=== PATIENT | female | born 1955 | race Caucasian/White ===

== ENCOUNTER → 2017-03-29 | Outpatient (REF) | payer BC ==
[2017-03-29 15:41] LABS: ANION GAP 6 MEQ/L (8-16); BLOOD UREA NITROGEN 13 MG/DL (7-18); CARBON DIOXIDE LEVEL 31 MEQ/L (21-32); CHLORIDE LEVEL 101 MEQ/L (98-107); CREATININE FOR GFR 0.81 MG/DL (0.55-1.02); GLOMERULAR FILTRATION RATE > 60.0 (>45); GLUCOSE, FASTING 92 MG/DL (80-110); POTASSIUM SERUM 4.3 MEQ/L (3.5-5.1); SODIUM LEVEL 138 MEQ/L (136-145)
[2017-03-29 15:42] LABS: ALBUMIN 3.6 GM/DL (3.2-5.2); ALBUMIN/GLOBULIN RATIO 1.03 (1.00-1.93); ALKALINE PHOSPHATASE 60 U/L (45-117); ALT/SGPT 25 U/L (12-78); AST/SGOT 12 U/L (15-37); BILIRUBIN,TOTAL 0.5 MG/DL (0.2-1.0); CALCIUM LEVEL 8.8 MG/DL (8.8-10.2); CHOLESTEROL LEVEL 184 MG/DL (<200); TOTAL PROTEIN 7.1 GM/DL (6.4-8.2); TRIGLYCERIDES LEVEL 137 MG/DL (<150)
== END ==
LOC: M SFHCLACO 08:49
PROVIDERS: ATTEND Physician Assistant
DX: E78.2 Mixed hyperlipidemia (principal); K21.9 Gastro-esophageal reflux disease without esophagitis

== ENCOUNTER → 2017-10-04 | Outpatient (REF) | payer BC ==
[2017-10-04 15:36] LABS: ALBUMIN 3.7 GM/DL (3.2-5.2); ALBUMIN/GLOBULIN RATIO 1.03 (1.00-1.93); ALKALINE PHOSPHATASE 67 U/L (45-117); ALT/SGPT 21 U/L (12-78); ANION GAP 8 MEQ/L (8-16); AST/SGOT 15 U/L (7-37); BILIRUBIN,TOTAL 0.4 MG/DL (0.2-1.0); BLOOD UREA NITROGEN 14 MG/DL (7-18); CALCIUM LEVEL 9.1 MG/DL (8.8-10.2); CARBON DIOXIDE LEVEL 26 MEQ/L (21-32); CHLORIDE LEVEL 104 MEQ/L (98-107); CHOLESTEROL LEVEL 158 MG/DL (<200); CREATININE FOR GFR 0.62 MG/DL (0.55-1.02); GLOMERULAR FILTRATION RATE > 60.0 (>45); GLUCOSE, FASTING 99 MG/DL (80-110); POTASSIUM SERUM 3.8 MEQ/L (3.5-5.1); SODIUM LEVEL 138 MEQ/L (136-145); TOTAL PROTEIN 7.3 GM/DL (6.4-8.2); TRIGLYCERIDES LEVEL 171 MG/DL (<150)
== END ==
LOC: M SFHCLACO 08:02
PROVIDERS: ATTEND Physician Assistant
DX: E78.2 Mixed hyperlipidemia (principal); K21.9 Gastro-esophageal reflux disease without esophagitis

== ENCOUNTER → 2018-04-04 | Outpatient (REF) | payer BC ==
[2018-04-04 15:02] LABS: HEMATOCRIT 43.7 % (36.0-47.0); HEMOGLOBIN 13.7 g/dl (12.0-15.5); MEAN CORPUSCULAR HEMOGLOBIN 26.1 pg (27.0-33.0); MEAN CORPUSCULAR HGB CONC 31.4 g/dl (32.0-36.5); MEAN CORPUSCULAR VOLUME 83.2 fl (80.0-96.0); PLATELET COUNT, AUTOMATED 185 10^3/uL (150-450); RED BLOOD COUNT 5.25 10^6/uL (4.00-5.40); RED CELL DISTRIBUTION WIDTH 15.9 % (11.5-14.5); WHITE BLOOD COUNT 7.7 10^3/uL (4.0-10.0)
[2018-04-04 15:05] LABS: ALBUMIN 3.4 GM/DL (3.2-5.2); ALBUMIN/GLOBULIN RATIO 0.77 (1.00-1.93); ALKALINE PHOSPHATASE 73 U/L (45-117); ALT/SGPT 21 U/L (12-78); ANION GAP 5 MEQ/L (8-16); AST/SGOT 11 U/L (7-37); BILIRUBIN,TOTAL 0.4 MG/DL (0.2-1.0); BLOOD UREA NITROGEN 13 MG/DL (7-18); CALCIUM LEVEL 9.1 MG/DL (8.8-10.2); CARBON DIOXIDE LEVEL 30 MEQ/L (21-32); CHLORIDE LEVEL 104 MEQ/L (98-107); CHOLESTEROL LEVEL 177 MG/DL (<200); CHOLESTEROL RISK RATIO 3.612 (<5); CREATININE FOR GFR 0.74 MG/DL (0.55-1.30); GLOMERULAR FILTRATION RATE > 60.0 (>45); GLUCOSE, FASTING 90 MG/DL (70-100); HDL CHOLESTEROL 49 MG/DL (>40); LDL CHOLESTEROL 100.6 MG/DL (<100); NON-HDL-C 128 MG/DL; POTASSIUM SERUM 4.7 MEQ/L (3.5-5.1); SODIUM LEVEL 139 MEQ/L (136-145); TOTAL PROTEIN 7.8 GM/DL (6.4-8.2); TRIGLYCERIDES LEVEL 137 MG/DL (<150)
== END ==
LOC: M SFHCLACO 08:11
DX: J45.909 Unspecified asthma, uncomplicated (principal); E78.2 Mixed hyperlipidemia; K21.9 Gastro-esophageal reflux disease without esophagitis; Z79.899 Other long term (current) drug therapy
CPT/HCPCS: 80053

== ENCOUNTER → 2018-04-11 | Outpatient (REF) | payer BC ==
[2018-04-20 00:06] LABS: AMPHETAMINE SCREEN, URINE Negative ng/mL (Cutoff=1000); BARBITURATES SCREEN, URINE Negative ng/mL (Cutoff=200); BENZODIAZEPINES, URINE SCREEN Negative ng/mL (Cutoff=200); CANNABINOID SCREEN, URINE Negative ng/mL (Cutoff=20); COCAINE SCREEN, URINE Negative ng/mL (Cutoff=300); CODEINE, URINE Negative (Cutoff=100); CREATININE, URINE 184.4 mg/dL (20.0-300.0); FENTANYL URINE SCREEN Negative pg/mL (Cutoff=2000); HYDROCODONE CONFIRM, URINE 2440 ng/mL (Cutoff=100); HYDROCODONE, URINE Positive (.); HYDROMORPHONE CONFIRM, URINE 385 ng/mL (Cutoff=100); HYDROMORPHONE, URINE Positive (.); METHADONE, URINE SCREEN Negative ng/mL (Cutoff=300); MORPHINE, URINE Negative (Cutoff=100); OPIATE SCREEN, URINE See Final Results ng/mL (Cutoff=300); OPIATES, URINE Positive ng/mL (Cutoff=300); OXYCODONE, SCREEN, URINE Negative ng/mL (Cutoff=100); PCP SCREEN, URINE Negative ng/mL (Cutoff=25); SPECIFIC GRAVITY, URINE 1.026 (.); pH, URINE 5.4 (4.5-8.9)
== END ==
LOC: M SFHCLACO 11:34
DX: Z79.899 Other long term (current) drug therapy (principal)
CPT/HCPCS: 80307

== ENCOUNTER → 2018-06-29 | Outpatient (REF) | payer BC | LOC: M SFHCPLAZ 17:32 | DX: R23.8 Other skin changes (principal) ==

== ENCOUNTER 2019-03-16 13:13 | Inpatient (IN) | payer BC ==
[~2019-03-16] VITALS: Ht 165.1 cm; Wt 113.5 kg
[2019-03-16 14:17] LABS: VENOUS BASE EXCESS 3.3 (-2.0-2.0); VENOUS HCO3 26.9 MEQ/L (23.0-27.0); VENOUS O2 SATURATION 99.1 % (60.0-80.0); VENOUS PARTIAL PRESSURE CO2 37.2 mmHg (38.0-50.0); VENOUS PARTIAL PRESSURE O2 135.2 mmHg (30.0-50.0); VENOUS PH 7.477 UNITS (7.330-7.430); VENOUS STANDARD HCO3 27.5 MEQ/L
[2019-03-16 14:22] LABS: BASO # 0.1 10^3/uL (0.0-0.2); BASO % 0.4 % (0.0-1.0); EOS % 0.3 % (0.0-3.0); HEMATOCRIT 32.1 % (36.0-47.0); HEMOGLOBIN 10.5 g/dl (12.0-15.5); LYMPH # 1.2 10^3/uL (1.5-4.5); LYMPH % 9.4 % (24.0-44.0); MEAN CORPUSCULAR HEMOGLOBIN 28.5 pg (27.0-33.0); MEAN CORPUSCULAR HGB CONC 32.7 g/dl (32.0-36.5); MEAN CORPUSCULAR VOLUME 87.2 fl (80.0-96.0); MONO # 1.7 10^3/uL (0.0-0.8); MONO % 13.6 % (0.0-5.0); NEUTROPHILS # 9.3 10^3/uL (1.8-7.7); NEUTROPHILS % 75.6 % (36.0-66.0); PLATELET COUNT, AUTOMATED 196 10^3/uL (150-450); RED BLOOD COUNT 3.68 10^6/uL (4.00-5.40); WHITE BLOOD COUNT 12.2 10^3/uL (4.0-10.0)
[2019-03-16] MEDS ORDERED: HYDR-3713 PO (14:45)
[2019-03-16] MEDS ORDERED: LEVOTAB10 PO (14:45)
[2019-03-16] MEDS ORDERED: OMEP-221 PO (14:45)
[2019-03-16] MEDS ORDERED: DULO1CAP3 PO (14:45)
[2019-03-16 14:55] LABS: ALBUMIN 2.6 GM/DL (3.2-5.2); ALT/SGPT 23 U/L (12-78); BILIRUBIN,DIRECT 0.3 MG/DL (0.0-0.2); BLOOD UREA NITROGEN 8 MG/DL (7-18); CALCIUM LEVEL 12.6 MG/DL (8.8-10.2); CARBON DIOXIDE LEVEL 27 MEQ/L (21-32); CHLORIDE LEVEL 98 MEQ/L (98-107); CPK CREATINE PHOSPHOKINASE 19 U/L (26-192); GLOMERULAR FILTRATION RATE > 60.0 (>45); GLUCOSE, FASTING 94 MG/DL (70-100); MB/CK RELATIVE INDEX 5.79 (< OR =4); POTASSIUM SERUM 3.1 MEQ/L (3.5-5.1); SODIUM LEVEL 135 MEQ/L (136-145); THYROID STIMULATING HORMONE 0.732 uIU/ML (0.358-3.740); TOTAL PROTEIN 6.4 GM/DL (6.4-8.2); TROPONIN I < 0.02 NG/ML (< 0.10)
[2019-03-16] MEDS ORDERED: ISOVUE-370 76% 100ML VIAL (Q9967) As Ordered ONE (15:13)
[2019-03-16] MEDS ORDERED: POTASSIUM CHLORIDE 10 MEQ SR TABLET PO ONE (15:15)
[2019-03-16] MEDS ORDERED: NS 1,000 ML IV ONE (15:15)
--- NOTE | 2019-03-16 15:54 | REP ---
Clinical: Abdominal pain. Technique: Axial contrast enhanced images from the lung bases to the pubic symphysis with coronal and sagittal re-formations using 100 ml Isovue 370 intravenous contrast material. Delayed images of the abdomen obtained. Comparison: None. Findings: The spleen demonstrates multiple low-density lesions measuring up to 5 cm and extensive intraperitoneal and retroperitoneal adenopathy is appreciated including conglomerate adenopathy along the retroperitoneum surrounding the aorta measuring roughly 14.2 x 11.4 cm diameter and 18.3 cm in craniocaudal length. Lymph nodes are also identified extending into the pelvis measuring up to approximately 5.7 cm. Similar low density mass involve the lower pole of the left kidney which measures approximately 8.6 x 8.8 x 7.5 cm. Liver, pancreas, gallbladder, bilateral adrenal glands and right kidney are normal. The enteric system is without obstruction or acute inflammatory process. Pelvis demonstrates collapsed bladder and age-appropriate uterus/adnexa. No ascites. No free air. Abdominal aorta without aneurysm or dissection. Musculoskeletal structures demonstrate degenerative change without focal osseous abnormality. Impression: 1. 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 Electronically Signed by Krishan Morris MD 03/16/2019 03:46 P
[2019-03-16] MEDS ORDERED: KCL 10MEQ/100ML SWI (KRUN) 10 MEQ in APPROPRIATE DILUENT 1 EA IV ONE (16:15)
[2019-03-16 16:27] LABS: LDH LACTATE DEHYDROGENASE 1097 U/L (84-246); PTH INTACT < 6.3 PG/ML (18.5-88.0)
[2019-03-16] MEDS ORDERED: ALB2.5NEB INH (16:35)
[2019-03-16] MEDS ORDERED: AMOX875T2 PO (16:35)
[2019-03-16] MEDS ORDERED: PROC10TA4 PO (16:35)
[2019-03-16] MEDS ORDERED: OMEPRAZOLE 20 MG CAP PO ONE (17:15)
[2019-03-16] MEDS ORDERED: ALBUTEROL SULFATE 2.5 MG/0.5 ML INH NEB SOLN INH PRN (17:15)
--- NOTE | 2019-03-16 18:01 | HPE ---
DATE OF ADMISSION: 03/16/2019 PRIMARY CARE PHYSICIAN: Dr. Sarahi Barrera. ATTENDING PHYSICIAN: Dr. Velez. CHIEF COMPLAINT: Eight weeks of nausea, vomiting, diarrhea and abdominal pain. HISTORY OF PRESENT ILLNESS: The patient is a 63-year-old white female without significant past medical history, presents to the emergency room (ER) for evaluation of above complaints. History is provided by herself. She is stating for the last eight weeks she was sick and she feels nauseous. She has abdominal pain, indicating whole abdomen, pain is sharp, is on and off. The worst pain is about 8/10 in severity. No radiation. She stated she had some fever, chills, night sweats. She lost about 10 pounds in the last few weeks. Regarding diarrhea, it is not bloody, but it is watery diarrhea. She was given ampicillin treatment for a possible sinus infection recently. Due to worsening abdominal pain, she decided to come to the ER for the following evaluation. In the ER, her initial blood work, the calcium was high at 16 and potassium was down to 3.1. She had a CT of the abdomen and pelvis done in the ER, which indicated she has extensive lymphadenopathy and is consistent with lymphoma and she was given intravenous (IV) fluid in the ER and medicine service was called for the admission. REVIEW OF SYSTEMS: Intermittent fevers, chills, night sweats. No headache. No blurry vision. No shortness of breath. No chest pain. Positive nausea. Positive vomiting, but no hematemesis. No bloody diarrhea. Positive abdominal pain. General weakness. All other systems reviewed were negative. PAST MEDICAL HISTORY: 1. Depression. 2. Acid reflux. 3. Degenerative joint disease. PAST SURGICAL HISTORY: 1. (C) section. 2. Cyst removal from spine. 3. Right shoulder surgery. ALLERGIES: SULFA. SOCIAL HISTORY: One pack tobacco use for 30 years and quit 30 years ago. No alcohol abuse. No illicit drug use. She lives with at home. CODE STATUS: She is FULL CODE. FAMILY HISTORY: Both parents are . Father had history of myocardial infarction ([place]). MEDICATIONS: Reviewed. PHYSICAL EXAMINATION: VITAL SIGNS: Temperature 99.6, heart rate 99, respirations 18, blood pressure 105/59, oxygen saturation 94% on room air. GENERAL: She is awake, alert, oriented times three. She is <<4:31>> . HEENT: Atraumatic. Pupils equal, round, reactive to light. No jaundice. Extraocular muscles intact. Ears, nose, throat normal. Mouth: Mucus dry. NECK: No jugular venous distention (JVD). She has enlarged lymph nodes 2-3 cm in her left neck area. LUNGS: Clear. No wheezing or crackles. HEART: S1, S2. Regular. No murmur. ABDOMEN: Soft. Bowel sounds positive. Mild, diffuse tenderness, but no rebound. LOWER EXTREMITIES: No edema in bilateral lower extremities. SKIN: No rash. LYMPHATICS: There are no enlarged lymph nodes in her armpits, groin area except one in the upper left neck area. NEUROLOGIC: Nonfocal. PSYCHOLOGIC: No acute psychosis, but very anxious. DIAGNOSTIC LABORATORY STUDIES: Including folate, complete blood count (CBC) and differential showed WBC 12.2, hemoglobin and hematocrit (H and H) 10.5/32, platelets 196. Sodium 135, potassium 3.1, BUN 8, creatinine 3.8, glucose 94, calcium is up to 12.6, and amylase is 6.5. CT of the abdomen and pelvis showed extensive lymphadenopathy. IMPRESSION: 1. Hypercalcemia. 2. Hypokalemia. 3. Lymphadenopathy, possible lymphoma. PLAN: Patient will be admitted to the medicine floor. Will treat with IV fluid and monitor her the next two nights. Will schedule a lymph node biopsy to determine the diagnosis. Heparin subcutaneous injection will be used for deep venous thrombosis (DVT) prophylaxis. MTDD
[2019-03-16 20:00] VITALS: BP 133/70
[2019-03-16] MEDS: HEPARIN SOD (PORCINE) 5000 UNITS/ML VIAL SC SCH (20:35)
[2019-03-16] MEDS: DULoxetine 30 MG CAP (CYMBALTA) PO SCH (20:49)
--- NOTE | 2019-03-16 20:58 | ECGEPIP ---
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
[2019-03-16] MEDS ORDERED: DULoxetine 30 MG CAP (CYMBALTA) PO SCH (21:00)
[2019-03-17 06:00] VITALS: BP 157/80
[2019-03-17 06:30] LABS: HEMATOCRIT 30.9 % (36.0-47.0); HEMOGLOBIN 10.1 g/dl (12.0-15.5); MEAN CORPUSCULAR HEMOGLOBIN 28.8 pg (27.0-33.0); MEAN CORPUSCULAR HGB CONC 32.7 g/dl (32.0-36.5); PLATELET COUNT, AUTOMATED 178 10^3/uL (150-450); RED BLOOD COUNT 3.51 10^6/uL (4.00-5.40)
[2019-03-17 06:31] LABS: IONIZED CALCIUM 6.6 MG/DL (4.5-5.3)
[2019-03-17 06:55] LABS: BLOOD UREA NITROGEN 8 MG/DL (7-18); CALCIUM LEVEL 13.3 MG/DL (8.8-10.2); CARBON DIOXIDE LEVEL 26 MEQ/L (21-32); CHLORIDE LEVEL 99 MEQ/L (98-107); CREATININE FOR GFR 0.86 MG/DL (0.55-1.30); GLOMERULAR FILTRATION RATE > 60.0 (>45); GLUCOSE, FASTING 101 MG/DL (70-100); POTASSIUM SERUM 3.3 MEQ/L (3.5-5.1); SODIUM LEVEL 134 MEQ/L (136-145)
[2019-03-17] MEDS: HEPARIN SOD (PORCINE) 5000 UNITS/ML VIAL SC SCH ×2 (10:01→20:49)
--- NOTE | 2019-03-17 10:37 | IPNPDOC ---
Date Seen The patient was seen on 03/17/19. Progress Note SUBJECTIVE: 65 Y female, without significant PMH presents with abdominal and n/v/d for about 8 weeks workups in ER showed hypercalcemia and extensive lymphadenopathy no events overnight Review of systems no fever no chills no WHYTE no chest pain mild abdominal pain no diarrhea OBJECTIVE PHYSICAL EXAMINATION: VITAL SIGNS: Please see below. GENERAL: AA Ox3, not in acute distress HEENT: atraumatic; +enlarged LN in left neck (2x3 cm) CARDIOVASCULAR: S1 S2 regular RESPIRATORY: clear, no wheezing no rales ABDOMINAL: soft distended, +mild tenderness, no rebound EXTREMITIES: no edema NEUROLOGICAL: non focal PSYCHOLOGICAL: normal mood LABORATORY DATA, IMAGING STUDIES, MICROBIOLOGY: Please see below. ASSESSMENT AND PLAN: 1. Hypercalcemia, likely related to malignancy will continue IVF, IV lasix and 1 dose Pamidronate 2. Hypokalemia, supplement 3. Lymphadenopathy, ?lymphoma will consult surgery for neck LN biopsy 4. Heparin for DVT prophylaxis [facility] Vital Signs Date Time Temp Pulse Resp B/P (MAP) Pulse Ox O2 Delivery O2 Flow Rate FiO2 03/17/19 06:00 98.7 102 18 157/80 (105) 99 03/16/19 19:30 Room Air I&O- Last 24 Hours up to 6 AM 03/17/19 06:00 Intake Total 1000 ml Output Total 250 ml Balance 750 ml Laboratory Data 24H LABS Laboratory Tests 2 03/16/19 14:05: Immature Granulocyte % (Auto) 0.7, White Blood Count 12.2H, Red Blood Count 3.68L, Hemoglobin 10.5L, Hematocrit 32.1L, Mean Corpuscular Volume 87.2, Mean Corpuscular Hemoglobin 28.5, Mean Corpuscular Hemoglobin Concent 32.7, Red Cell Distribution Width 18.8H, Platelet Count 196, Neutrophils (%) (Auto) 75.6H, Lymphocytes (%) (Auto) 9.4L, Monocytes (%) (Auto) 13.6H, Eosinophils (%) (Auto) 0.3, Basophils (%) (Auto) 0.4, Neutrophils # (Auto) 9.3H, Lymphocytes # (Auto) 1.2L, Monocytes # (Auto) 1.7H, Eosinophils # (Auto) 0.0, Basophils # (Auto) 0.1, Nucleated Red Blood Cells % (auto) 0.0, Blood Gas Bicarbonate Standard 27.5, Venous Blood pH 7.477H, Venous Blood Partial Pressure CO2 37.2L, Venous Blood Pa rtial Pressure O2 135.2H, Venous Blood Total Carbon Dioxide 28.0, Venous Blood HCO3 26.9, Venous Blood Oxygen Saturation 99.1H, Venous Blood Base Excess 3.3H, Anion Gap 10, Glomerular Filtration Rate > 60.0, Lactic Acid Level 3.3*H, Calcium Level 12.6H, Aspartate Amino Transf (AST/SGOT) 61H, Alanine Aminotransferase (ALT/SGPT) 23, Lactate Dehydrogenase 1097H, Alkaline Phosphatase 65, Total Bilirubin 1.0, Direct Bilirubin 0.3H, Total Creatine Kinase 19L, Creatine Kinase MB 1.0, Creatine Kinase MB Relative Index 5.79H, Troponin I < 0.02, Total Protein 6.4, Albumin 2.6L, Albumin/Globulin Ratio 0. 68L, 25-Hydroxy Vitamin D Total 9.0L, Thyroid Stimulating Hormone (TSH) 0.732, Parathyroid Hormone (Intact) < 6.3L 03/16/19 14:13: Bedside Glucose (Misc Panel) 101 03/16/19 15:13: Urine Color YELLOW, Urine Appearance HAZY, Urine pH 6.0, Urine Specific [place] 1.012, Urine Protein NEGATIVE, Urine Glucose (UA) NEGATIVE, Urine Ketones TRACEH, Urine Blood NEGATIVE, Urine Nitrite NEGATIVE, Urine Bilirubin NEGATIVE, Urine Urobilinogen 0.2, Urine Leukocyte Esterase NEGATIVE, Urine WBC (Auto) 5H, Urine RBC (Auto) 2, Urine Hyaline Casts (Auto) 0, Urine Bacteria (Auto) NEGATIVE, Urine Squamous Epithelial Cells 0, Urine Mucus (Auto) SMALL, Urine Sperm (Auto) 03/16/19 16:29: Whole Blood Ionized Calcium 6.5*H 03/16/19 18:48: Lactic Acid Followup at 4 Hours 3.1*H 03/17/19 06:07: Nucleated Red Blood Cells % (auto) 0.0, Anion Gap 9, Glomerular Filtration Rate > 60.0, Blood Urea Nitrogen 8, Creatinine 0.86, Sodium Level 134L, Potassium Level 3.3L, Chloride Level 99, Carbon Dioxide Level 26, Calcium Level 13.3H, Whole Blood Ionized Calcium 6.6*H CBC/BMP Laboratory Tests 03/16/19 14:05 Red Blood Count 3.68 L, Mean Corpuscular Volume 87.2, Mean Corpuscular Hemoglobin 28.5, Mean Corpuscular Hemoglobin Concent 32.7, Red Cell Distribution Width 18.8 H, Neutrophils (%) (Auto) 75.6 H, Lymphocytes (%) (Auto) 9.4 L, Monocytes (%) (Auto) 13.6 H, Eosinophils (%) (Auto) 0.3, Basophils (%) (Auto) 0.4, Neutrophils # (Auto) 9.3 H, Lymphocytes # (Auto) 1.2 L, Monocytes # (Auto) 1.7 H, Eosinophils # (Auto) 0.0, Basophils # (Auto) 0.1 03/17/19 06:07 Red Blood Count 3.51 L, Mean Corpuscular Volume 88.0, Mean Corpuscular Hemoglobin 28.8, Mean Corpuscular Hemoglobin Concent 32.7, Red Cell Distribution Width 19.1 H, Calcium Level 13.3 H Microbiology Microbiology 03/16/19 Blood Culture, Received Pending 03/16/19 Blood Culture, Received Pending 03/16/19 Respiratory Virus Panel (PCR) ([facility]) - Final, Complete Human Rhinovirus/Enterovirus ALEXIS NICHOLE MD March 17, 2019 10:37
[2019-03-17] MEDS: PROCHLORPERAZINE 5 MG TAB (S0183) PO PRN (10:48)
[2019-03-17] MEDS ORDERED: POTASSIUM CHLORIDE 10 MEQ SR TABLET PO ONE (11:00)
[2019-03-17] MEDS ORDERED: FUROSEMIDE 40 MG/4 ML VIAL (J1940) IV ONE (11:00)
[2019-03-17] MEDS: OMEPRAZOLE 20 MG CAP PO SCH (11:24)
[2019-03-17] MEDS: NS 1,000 ML IV SCH ×2 (12:13→17:44)
[2019-03-17] MEDS ORDERED: PAMIDRONATE DISODIUM FOR INJ 60 MG in D5W 1,000 ML IV ONE (13:00)
[2019-03-17 14:00] VITALS: BP 138/72
--- NOTE | 2019-03-17 14:54 | CR ---
DATE OF CONSULTATION: 03/17/2019 BRIEF HISTORY OF PRESENT ILLNESS: The patient is a 63-year-old male who was admitted with 8 weeks of nausea, vomiting, diarrhea and abdominal pain and essentially had extensive workup and during that workup they noticed that she had extensive lymphadenopathy throughout her abdomen and their concern was that she has some lymphoma. She also has palpable supraclavicular lymph nodes on her head and neck exam and I was asked to see her for possible biopsy of these lymph nodes. Her past medical history is significant for history of depression, history of acid reflux, history of degenerative joint disease (DJD), history of , history of cyst removal on the spine, history of right shoulder surgery, history of smoking in the past but no longer smoking for the last 30 years. Physical exam reveals a 63-year-old female who looks stated age. HEENT: Reveals an atraumatic, normocephalic head. Unfortunately she has palpable lymph nodes along her left cervical chain and in the left supraclavicular area. The right side I am not appreciating any significant lymph nodes though I can still feel some but it is not as impressive as the left side. Lungs are clear. Heart is regular. Abdomen is soft, softly distended, tympanitic. She does not really have any guarding, rebound, no peritoneal signs, but definitely distended to some extent. She has a morbidly obese abdomen and thus groin exam not able to appreciate the lymphadenopathy that she most likely has in this area. IMPRESSION AND PLAN: The patient has some enlarged lymph nodes in the cervical area as well as in the supraclavicular area. In the supraclavicular area that is quite spongy with almost lipomatous association to it as well, but I will obtain a CT neck and chest to optimize the location for removal of this lymph node. In general, typically the pathologist in the past have desired a fresh specimen when it came to the lymph nodes and thus we will schedule this for after the long weekend on Tuesday. Until that time it sounds as though she needs to resolve some issues, elevated white count, diarrhea issues, dehydration and some rhinovirus type symptoms.
[2019-03-17] MEDS: DULoxetine 30 MG CAP (CYMBALTA) PO SCH (20:48)
[2019-03-17 22:00] VITALS: BP 151/82
[2019-03-18] MEDS: NS 1,000 ML IV SCH ×4 (00:43→20:25)
[2019-03-18 06:00] VITALS: BP 152/82
[2019-03-18 06:36] LABS: IONIZED CALCIUM 6.4 MG/DL (4.5-5.3)
[2019-03-18 07:05] LABS: BLOOD UREA NITROGEN 7 MG/DL (7-18); CALCIUM LEVEL 12.4 MG/DL (8.8-10.2); CARBON DIOXIDE LEVEL 25 MEQ/L (21-32); CHLORIDE LEVEL 101 MEQ/L (98-107); CREATININE FOR GFR 0.88 MG/DL (0.55-1.30); GLOMERULAR FILTRATION RATE > 60.0 (>45); GLUCOSE, FASTING 106 MG/DL (70-100); POTASSIUM SERUM 3.3 MEQ/L (3.5-5.1); SODIUM LEVEL 135 MEQ/L (136-145)
[2019-03-18] MEDS: OMEPRAZOLE 20 MG CAP PO SCH (08:05)
[2019-03-18] MEDS: HEPARIN SOD (PORCINE) 5000 UNITS/ML VIAL SC SCH ×2 (08:06→20:25)
[2019-03-18] MEDS ORDERED: ISOVUE-370 76% 100ML VIAL (Q9967) As Ordered ONE (08:23)
[2019-03-18] MEDS ORDERED: FUROSEMIDE 40 MG/4 ML VIAL (J1940) IV ONE (09:00)
[2019-03-18] MEDS ORDERED: OMEPRAZOLE 20 MG CAP PO SCH (09:00)
--- NOTE | 2019-03-18 10:05 | REP ---
Clinical: Lymphoma. Technique: Axial contrast enhanced images from the thoracic inlet to the upper abdomen with coronal and sagittal re-formations using 100 ml Isovue 370 intravenous contrast material. Findings: A left submandibular space node measuring 2.5 cm. A left axillary adenopathy with lymph nodes measuring up to 3.3 cm. Mediastinum demonstrates prominent pulmonary arteries suggesting the possibility of pulmonary arterial hypertension. No cardiomegaly. Thoracic aorta is without aneurysm or dissection. No obvious mediastinal adenopathy identified. Lung bishop demonstrate chronic-appearing interstitial changes without focal consolidation, effusion, or pneumothorax. No pulmonary parenchymal nodule or mass lesion. Upper abdomen again demonstrates extensive retroperitoneal adenopathy surrounding the aorta as well as scattered mesenteric adenopathy and splenic lesions. Impression: 1. Adenopathy as described above most compatible with lymphoma. 2. Distended pulmonary arteries suggesting pulmonary arterial hypertension. 3. No acute pleuroparenchymal process appreciated. Electronically Signed by Krishan Morris MD 03/18/2019 09:56 A
--- NOTE | 2019-03-18 11:05 | IPN ---
DATE: 03/18/2019 The patient underwent her CT scan of her neck and chest this morning, results are still pending but obviously had some significant lymphadenopathy. Where I am noticing the most superficial lymph node is in the submandibular / left upper neck area and this is easily palpable on her physical exam. She understands that we will proceed with a open biopsy of this on Tuesday. The risks as well as benefits have been discussed with her at length including but not limited to infection, bleeding, damage to surrounding structures and possible inadequate lymph node tissue. However, at this point I do feel that she needs to be optimized from a medical standpoint prior to operative intervention and thus we have couple days to perform that. White count still elevated at this point which may be secondary to the tumor burden and her abdominal pain is better than it was previously. They have restarted her diet. We will see how she does over the ensuing 24-48 hours.
--- NOTE | 2019-03-18 11:29 | IPNPDOC ---
Date Seen The patient was seen on 03/18/19. Progress Note SUBJECTIVE: 65 Y female, without significant PMH presents with abdominal and n/v/d for about 8 weeks workups in ER showed hypercalcemia and extensive lymphadenopathy she is feeling better, no vomiting or diarrhea still has some abdominal pain but better Review of systems no fever no chills no WHYTE no chest pain mild abdominal pain no diarrhea OBJECTIVE PHYSICAL EXAMINATION: VITAL SIGNS: Please see below. GENERAL: AA Ox3, not in acute distress HEENT: atraumatic; +enlarged LN in left neck (2x3 cm) CARDIOVASCULAR: S1 S2 regular RESPIRATORY: clear, no wheezing no rales ABDOMINAL: soft distended, +mild tenderness, no rebound EXTREMITIES: no edema NEUROLOGICAL: non focal PSYCHOLOGICAL: normal mood LABORATORY DATA, IMAGING STUDIES, MICROBIOLOGY: Please see below. ASSESSMENT AND PLAN: 1. Hypercalcemia, likely related to malignancy improving after IVF, lasix and Pamidronate will continue IVF 2. Hypokalemia, supplement 3. Lymphadenopathy, ?lymphoma Neck and chest CT showed enlarged LN in left neck and left armpit Surgery consulted and plans for neck LN biopsy on 03/20 4. Heparin for DVT prophylaxis VS, I&O, 24H, Fishbone Vital Signs/I&O Vital Signs Date Time Temp Pulse Resp B/P (MAP) Pulse Ox O2 Delivery O2 Flow Rate FiO2 03/18/19 06:00 98.7 104 19 152/82 (105) 95 03/16/19 19:30 Room Air I&O- Last 24 Hours up to 6 AM 03/18/19 06:00 Intake Total 2950 ml Output Total 0 ml Balance 2950 ml Laboratory Data 24H LABS Laboratory Tests 2 03/18/19 06:10: Anion Gap 9, Glomerular Filtration Rate > 60.0, Blood Urea Nitrogen 7, Creatinine 0.88, Sodium Level 135L, Potassium Level 3.3L, Chloride Level 101, Carbon Dioxide Level 25, Calcium Level 12.4H, Whole Blood Ionized Calcium 6.4*H CBC/BMP Laboratory Tests 03/18/19 06:10 Calcium Level 12.4 H Microbiology Microbiology 03/16/19 Blood Culture - Preliminary, Resulted No growth after 24 hours . All specim... 03/16/19 Blood Culture - Preliminary, Resulted No growth after 24 hours . All specim... 03/16/19 Respiratory Virus Panel (PCR) ([facility]) - Final, Complete Human Rhinovirus/Enterovirus ENGLISH,XIANJIN MD March 18, 2019 11:29
--- NOTE | 2019-03-18 13:35 | REP ---
Clinical: Lymphoma. Technique: Axial contrast enhanced images from the skull base to the thoracic inlet with coronal and sagittal re-formations using 100 ml Isovue 370 intravenous contrast material. Findings: Innumerable left-sided lymph nodes are appreciated. As example, left submandibular lymph nodes measure up to 2.6 x 2.4 x 1.5 cm, para-parotid lymph nodes measure up to 2.6 x 2.4 x 2.0 cm, multiple jugular chain lymph nodes measure up to 2.8 x 2.5 x 3.3 cm, and conglomerate lymph nodes at the thoracic inlet measure 5.5 x 3.1 x 3.5 cm. Right-sided lymph nodes are relatively normal in appearance. Visualized airway and surrounding soft tissues are otherwise normal. Visualized sinuses and mastoid air cells are clear. Orbits are symmetric and normal. Vascular structures are symmetric and normal. Osseous structures are intact. Impression: Extensive left-sided adenopathy consistent with the suspected diagnosis of lymphoma. Electronically Signed by Krishan Morris MD 03/18/2019 01:28 P
[2019-03-18 14:00] VITALS: BP 147/73
[2019-03-18] MEDS: DULoxetine 30 MG CAP (CYMBALTA) PO SCH (20:25)
[2019-03-18 22:00] VITALS: BP 129/62
[2019-03-19 06:00] VITALS: BP 135/63
[2019-03-19 06:20] LABS: IONIZED CALCIUM 5.7 MG/DL (4.5-5.3)
[2019-03-19 06:43] LABS: BLOOD UREA NITROGEN 9 MG/DL (7-18); CALCIUM LEVEL 10.7 MG/DL (8.8-10.2); CARBON DIOXIDE LEVEL 24 MEQ/L (21-32); CHLORIDE LEVEL 101 MEQ/L (98-107); CREATININE FOR GFR 0.85 MG/DL (0.55-1.30); GLOMERULAR FILTRATION RATE > 60.0 (>45); GLUCOSE, FASTING 103 MG/DL (70-100); MAGNESIUM LEVEL 1.1 MG/DL (1.8-2.4); POTASSIUM SERUM 3.2 MEQ/L (3.5-5.1); SODIUM LEVEL 136 MEQ/L (136-145); URIC ACID 8.7 MG/DL (2.6-6.0)
[2019-03-19] MEDS: HEPARIN SOD (PORCINE) 5000 UNITS/ML VIAL SC SCH ×2 (08:16→20:28)
[2019-03-19] MEDS: NORCO, ANEXSIA 5/325MG TABLET (HYDROcodone/ACETAMINOPHEN) PO PRN ×2 (08:16→16:44)
[2019-03-19] MEDS: OMEPRAZOLE 20 MG CAP PO SCH (08:17)
[2019-03-19] MEDS: POTASSIUM CHLORIDE 10 MEQ SR TABLET PO SCH ×2 (08:17→20:27)
--- NOTE | 2019-03-19 09:42 | IPNPDOC ---
Date Seen The patient was seen on 03/19/19. Progress Note SUBJECTIVE: 65 Y female, without significant PMH presents with abdominal and n/v/d for about 8 weeks workups in ER showed hypercalcemia and extensive lymphadenopathy she is feeling better, no vomiting or diarrhea doing well no events overnight Review of systems no fever no chills no WHYTE no chest pain no abdominal pain no diarrhea OBJECTIVE PHYSICAL EXAMINATION: VITAL SIGNS: Please see below. GENERAL: AA Ox3, not in acute distress HEENT: atraumatic; +enlarged LN in left neck (2x3 cm) CARDIOVASCULAR: S1 S2 regular RESPIRATORY: clear, no wheezing no rales ABDOMINAL: soft distended, +mild tenderness, no rebound EXTREMITIES: no edema NEUROLOGICAL: non focal PSYCHOLOGICAL: normal mood LABORATORY DATA, IMAGING STUDIES, MICROBIOLOGY: Please see below. ASSESSMENT AND PLAN: 1. Hypercalcemia, likely related to malignancy resolved after IVF, lasix and Pamidronate will d/c IVF 2. Hypokalemia, resolved 3. Lymphadenopathy, ?lymphoma Neck and chest CT showed enlarged LN in left neck and left armpit Surgery consulted and plans for neck LN biopsy on 03/20 4. Heparin is for DVT Prophylaxis 5. She may go home tomorrow after LN biopsy VS, I&O, 24H, Fishbone Vital Signs/I&O Vital Signs Date Time Temp Pulse Resp B/P (MAP) Pulse Ox O2 Delivery O2 Flow Rate FiO2 03/19/19 08:46 18 03/19/19 06:00 98.0 97 135/63 (87) 96 03/16/19 19:30 Room Air I&O- Last 24 Hours up to 6 AM 03/19/19 05:59 Intake Total 2220 ml Output Total 1075 ml Balance 1145 ml Laboratory Data 24H LABS Laboratory Tests 2 03/19/19 06:01: Anion Gap 11, Glomerular Filtration Rate > 60.0, Uric Acid 8.7H, Blood Urea Nitrogen 9, Creatinine 0.85, Sodium Level 136, Potassium Level 3.2L, Chloride Level 101, Carbon Dioxide Level 24, Calcium Level 10.7H, Whole Blood Ionized Calcium 5.7H, Magnesium Level 1.1L CBC/BMP Laboratory Tests 03/19/19 06:01 Calcium Level 10.7 H Microbiology Microbiology 03/16/19 Blood Culture - Preliminary, Resulted No Growth after 48 hours. All Specime... 03/16/19 Blood Culture - Preliminary, Resulted No Growth after 48 hours. All Specime... 03/16/19 Respiratory Virus Panel (PCR) ([facility]) - Final, Complete Human Rhinovirus/Enterovirus ALEXIS NICHOLE MD March 19, 2019 09:42
[2019-03-19 10:22] LABS: HEMATOCRIT 30.4 % (36.0-47.0); HEMOGLOBIN 9.8 g/dl (12.0-15.5); MEAN CORPUSCULAR HEMOGLOBIN 28.5 pg (27.0-33.0); MEAN CORPUSCULAR HGB CONC 32.2 g/dl (32.0-36.5); MEAN CORPUSCULAR VOLUME 88.4 fl (80.0-96.0); PLATELET COUNT, AUTOMATED 191 10^3/uL (150-450); RED BLOOD COUNT 3.44 10^6/uL (4.00-5.40)
[2019-03-19 10:31] LABS: BLOOD UREA NITROGEN 10 MG/DL (7-18); CARBON DIOXIDE LEVEL 24 MEQ/L (21-32); CHLORIDE LEVEL 101 MEQ/L (98-107); CREATININE FOR GFR 0.94 MG/DL (0.55-1.30); GLOMERULAR FILTRATION RATE > 60.0 (>45); GLUCOSE, FASTING 117 MG/DL (70-100); POTASSIUM SERUM 3.2 MEQ/L (3.5-5.1); SODIUM LEVEL 135 MEQ/L (136-145)
[2019-03-19 14:00] VITALS: BP 138/65
[2019-03-19] MEDS: DULoxetine 30 MG CAP (CYMBALTA) PO SCH (20:28)
[2019-03-19 22:00] VITALS: BP 137/69
[2019-03-20] VITALS (9 sets, daily range): BP systolic 125–156; BP diastolic 58–76
[2019-03-20 06:17] LABS: IONIZED CALCIUM 5.3 MG/DL (4.5-5.3)
[2019-03-20 06:46] LABS: BLOOD UREA NITROGEN 10 MG/DL (7-18); CALCIUM LEVEL 10.5 MG/DL (8.8-10.2); CARBON DIOXIDE LEVEL 24 MEQ/L (21-32); CHLORIDE LEVEL 104 MEQ/L (98-107); CREATININE FOR GFR 0.84 MG/DL (0.55-1.30); GLOMERULAR FILTRATION RATE > 60.0 (>45); GLUCOSE, FASTING 92 MG/DL (70-100); POTASSIUM SERUM 3.8 MEQ/L (3.5-5.1); SODIUM LEVEL 138 MEQ/L (136-145)
[2019-03-20] MEDS: HEPARIN SOD (PORCINE) 5000 UNITS/ML VIAL SC SCH ×2 (09:12→20:54)
[2019-03-20] MEDS: OMEPRAZOLE 20 MG CAP PO SCH (09:12)
[2019-03-20] MEDS ORDERED: PROPOFOL 200 MG/20 ML VIAL As Ordered ONE (10:42)
[2019-03-20] MEDS ORDERED: ONDANSETRON 4MG/2ML VIAL (J2405) As Ordered ONE (10:42)
[2019-03-20] MEDS ORDERED: LIDOCAINE 2% INJ 100 MG/5 ML SDV (FOR ANES.) As Ordered ONE (10:42)
[2019-03-20] MEDS ORDERED: dexameTHASONE 4 MG/ML 1ML VIAL (J1100) As Ordered ONE (10:42)
[2019-03-20] MEDS ORDERED: MIDAZOLAM INJ 2 MG/2 ML VIAL (J2250) As Ordered ONE ×2 (10:43→13:02)
[2019-03-20] MEDS ORDERED: fentaNYL 100 MCG/2 ML INJECTION (J3010) As Ordered ONE (10:43)
[2019-03-20] MEDS ORDERED: ISOSULFAN BLUE(LYMPHAZURIN) 1% 50MG/5ML VIAL (Q9968) As Ordered ONE (12:23)
[2019-03-20] MEDS ORDERED: BUPIVACAINE/EPIN 0.25% 30 ML VIAL As Ordered ONE (12:23)
[2019-03-20] MEDS ORDERED: ALBUTEROL 6.7GM INHALER **FOR ANES. CART/OMNICELL ONLY As Ordered ONE (13:55)
[2019-03-20] MEDS ORDERED: LIDOCAINE 2% JELLY 6 ML SYRINGE As Ordered ONE (13:56)
[2019-03-20] MEDS ORDERED: LR 1,000 ML IV SCH (14:30)
[2019-03-20] MEDS ORDERED: HYDROMORPHONE HCL 0.5 MG/ 0.5 ML SYRINGE (J1170 PER 1) IV PRN (14:30)
[2019-03-20] MEDS ORDERED: PERCOCET 5MG/325MG TAB PO PRN (14:30)
[2019-03-20] MEDS ORDERED: fentaNYL 100 MCG/2 ML INJECTION (J3010) IV PRN (14:30)
[2019-03-20] MEDS ORDERED: ONDANSETRON 4MG/2ML VIAL (J2405) IV PRN (14:30)
--- NOTE | 2019-03-20 16:25 | IPNPDOC ---
Text Note Date of Service The patient was seen on 03/20/19. NOTE Subjective: Patient seen and examined at bedside. No acute overnight events reported. No new medical complaints. Objective: PHYSICAL EXAMINATION: VITAL SIGNS: Please see below. GENERAL: AA Ox3, not in acute distress HEENT: atraumatic; +enlarged LN in left neck (2x3 cm) CARDIOVASCULAR: +S1S2, RRR RESPIRATORY: clear, no wheezing no rales ABDOMINAL: soft, +BS, NT EXTREMITIES: no edema NEUROLOGICAL: non focal PSYCHOLOGICAL: normal mood LABORATORY DATA, IMAGING STUDIES, MICROBIOLOGY: Please see below. A/P: 63 yo female for hypercalcemia likely related to malignancy 1. Hypercalcemia, likely related to malignancy resolved after IVF, lasix and Pamidronate 2. Hypokalemia, resolved 3. Lymphadenopathy, ?lymphoma Neck and chest CT showed enlarged LN in left neck and left armpit Surgery consulted s/p LN biopsy today - observe overnight 4. Heparin is for DVT Prophylaxis Dispo: overnight observation after biopsy, anticipate discharge home tomorrow morning VS,Fishbone, I+O VS, Fishbone, I+O Laboratory Tests 03/20/19 06:08 Calcium Level 10.5 H Vital Signs Date Time Temp Pulse Resp B/P (MAP) Pulse Ox O2 Delivery O2 Flow Rate FiO2 03/20/19 14:28 99.4 103 18 131/63 (85) 93 03/16/19 19:30 Room Air I&O- Last 24 Hours up to 6 AM 03/20/19 06:00 Intake Total 1675 ml Output Total 2700 ml Balance -1025 ml CHUCK HAYS MD March 20, 2019 16:25
[2019-03-20] MEDS: NORCO, ANEXSIA 5/325MG TABLET (HYDROcodone/ACETAMINOPHEN) PO PRN (18:37)
--- NOTE | 2019-03-20 20:22 | RO ---
DATE: 03/20/2019 PREOPERATIVE DIAGNOSIS: Enlarged lymph nodes. (Probable lymphoma). POSTOPERATIVE DIAGNOSIS: Enlarged lymph nodes. (Probable lymphoma). OPERATIVE PROCEDURE: Left neck lymph node biopsy. SURGEON: Srini Hopson MD [employer]RIER DRIVER: ANESTHESIA: IV sedation plus local. ESTIMATED BLOOD LOSS: 25 mL FLUIDS: Crystalloid. BRIEF PROCEDURE SUMMARY: The patient was brought to the operating room and was given IV sedation, was placed in the reverse Trendelenburg position and her head was tilted to the right. She was prepped and draped in the usual sterile fashion and local lidocaine was infiltrated into the area overlying the palpable lymph node and the left upper neck. Incision along the sternocleidomastoid muscle was made with skin knife and electrocautery was used cut through dermis, underlying deep subcutaneous tissue down to Benedict fascia to platysma. This was opened up sharply and a combination of blunt and sharp dissection was used to palpate as well as mobilize around the lymph node. However when mobilizing the lymph node, the lymph node was incredibly necrotic and literally disintegrated with dissection in this area. The portions of the lymph node were removed and there was some mild oozing from this which was controlled with Glo. Then a secondary right on the top where there was a small vein crossing over the lymph node was suture ligating with a #3-0 Vicryl. Once this was performed, the overlying platysma was brought back together with interrupted #3-0 Vicryl. #3-0 Vicryl was used to approximate dermis, #4-0 Vicryl was used to approximate the skin. Steri-Strips and a dry sterile dressing was applied. The patient was awakened from her sedation, brought to the recovery room awake, alert and hemodynamically stable. Sponge and needle counts correct times two.
[2019-03-20] MEDS: DULoxetine 30 MG CAP (CYMBALTA) PO SCH (20:54)
[2019-03-21 04:00] VITALS: BP 113/67
[2019-03-21 08:06] LABS: HEMATOCRIT 31.6 % (36.0-47.0); HEMOGLOBIN 10.2 g/dl (12.0-15.5); MEAN CORPUSCULAR HEMOGLOBIN 28.8 pg (27.0-33.0); MEAN CORPUSCULAR HGB CONC 32.3 g/dl (32.0-36.5); MEAN CORPUSCULAR VOLUME 89.3 fl (80.0-96.0); PLATELET COUNT, AUTOMATED 224 10^3/uL (150-450); RED BLOOD COUNT 3.54 10^6/uL (4.00-5.40); WHITE BLOOD COUNT 17.2 10^3/uL (4.0-10.0)
[2019-03-21 08:33] LABS: ALBUMIN 2.8 GM/DL (3.2-5.2); ALT/SGPT 48 U/L (12-78); BILIRUBIN,TOTAL 0.5 MG/DL (0.2-1.0); BLOOD UREA NITROGEN 17 MG/DL (7-18); CALCIUM LEVEL 10.7 MG/DL (8.8-10.2); CARBON DIOXIDE LEVEL 21 MEQ/L (21-32); CHLORIDE LEVEL 105 MEQ/L (98-107); CREATININE FOR GFR 0.93 MG/DL (0.55-1.30); GLOMERULAR FILTRATION RATE > 60.0 (>45); GLUCOSE, FASTING 167 MG/DL (70-100); POTASSIUM SERUM 3.9 MEQ/L (3.5-5.1); SODIUM LEVEL 139 MEQ/L (136-145); TOTAL PROTEIN 6.9 GM/DL (6.4-8.2)
[2019-03-21] MEDS: HEPARIN SOD (PORCINE) 5000 UNITS/ML VIAL SC SCH ×2 (08:36→20:05)
[2019-03-21] MEDS: OMEPRAZOLE 20 MG CAP PO SCH (08:36)
[2019-03-21] MEDS: NORCO, ANEXSIA 5/325MG TABLET (HYDROcodone/ACETAMINOPHEN) PO PRN ×2 (10:33→16:32)
[2019-03-21 11:26] LABS: NT-PRO BNP 1634 PG/ML (<125)
--- NOTE | 2019-03-21 12:22 | REP ---
CHEST X-RAY: Two views. HISTORY: Shortness of breath. FINDINGS: There are orthopedic screws in place in the proximal humerus on the right. There are degenerative changes in the thoracic spine. No acute bony abnormality is seen. The heart is mildly prominent. Cardiothoracic ratio measures 46.3%. The main pulmonary artery segment and AP window segment of the left heart border are prominent and convex question adenopathy versus of the pulmonary arterial hypertension. There is subtle fullness in the right hilus as well. CT study done March 18, 2019 demonstrates that this is primarily due to dilated central pulmonary arteries consistent with pulmonary arterial hypertension. There is also adenopathy in the supraclavicular and subclavicular region and the left axilla as well as the upper abdomen on that CT. IMPRESSION: Borderline heart size. Evidence of centrally dilated pulmonary arteries consistent with pulmonary arterial hypertension. Otherwise no acute disease seen. Electronically Signed by Harjinder Rivera MD 03/21/2019 12:40 P
[2019-03-21] MEDS ORDERED: FUROSEMIDE 20 MG TAB PO ONE (13:00)
--- NOTE | 2019-03-21 13:25 | IPNPDOC ---
Text Note Date of Service The patient was seen on 03/21/19. NOTE Subjective: Patient seen and examined at bedside. Patient feels short of breath, with generalized edema today. Also notes orthopnea. Objective: PHYSICAL EXAMINATION: VITAL SIGNS: Please see below. GENERAL: AA Ox3, not in acute distress HEENT: atraumatic; +enlarged LN in left neck (2x3 cm) CARDIOVASCULAR: +S1S2, RRR RESPIRATORY: clear, no wheezing no rales ABDOMINAL: soft, +BS, NT EXTREMITIES: no edema NEUROLOGICAL: non focal PSYCHOLOGICAL: normal mood LABORATORY DATA, IMAGING STUDIES, MICROBIOLOGY: Please see below. A/P: 63 yo female for hypercalcemia likely related to malignancy 1. Hypercalcemia, likely related to malignancy resolved after IVF, lasix and Pamidronate 2. Hypokalemia, resolved 3. Lymphadenopathy, ?lymphoma Neck and chest CT showed enlarged LN in left neck and left armpit Surgery consulted s/p LN biopsy today - observe overnight 4. Heparin is for DVT Prophylaxis 5. leukocytosis 6. SOB/edema - likely secondary to fluid overload - CXR noted - Lasix administered today - continue to follow clinically VS,Ronni, I+O VS, Ronni, I+O Laboratory Tests 03/21/19 07:52 Red Blood Count 3.54 L, Mean Corpuscular Volume 89.3, Mean Corpuscular Hemoglobin 28.8, Mean Corpuscular Hemoglobin Concent 32.3, Red Cell Distribution Width 19.4 H, Calcium Level 10.7 H, Aspartate Amino Transf (AST/SGOT) 82 H, Alanine Aminotransferase (ALT/SGPT) 48, Alkaline Phosphatase 74, Total Bilirubin 0.5, Total Protein 6.9, Albumin 2.8 L Vital Signs Date Time Temp Pulse Resp B/P (MAP) Pulse Ox O2 Delivery O2 Flow Rate FiO2 03/21/19 11:03 20 03/21/19 04:00 96.6 103 113/67 (82) 92 03/16/19 19:30 Room Air I&O- Last 24 Hours up to 6 AM 03/21/19 05:59 Intake Total 2210 ml Output Total 800 ml Balance 1410 ml CHUCK HAYS MD March 21, 2019 13:25
[2019-03-21 14:00] VITALS: BP 127/64
[2019-03-21] MEDS: DULoxetine 30 MG CAP (CYMBALTA) PO SCH (20:04)
[2019-03-21 22:00] VITALS: BP 100/60
[2019-03-22] MEDS: NORCO, ANEXSIA 5/325MG TABLET (HYDROcodone/ACETAMINOPHEN) PO PRN ×3 (01:08→18:59)
[2019-03-22 06:00] VITALS: BP 152/59
[2019-03-22 06:38] LABS: HEMATOCRIT 30.9 % (36.0-47.0); HEMOGLOBIN 9.9 g/dl (12.0-15.5); MEAN CORPUSCULAR HEMOGLOBIN 29.3 pg (27.0-33.0); MEAN CORPUSCULAR VOLUME 91.4 fl (80.0-96.0); PLATELET COUNT, AUTOMATED 199 10^3/uL (150-450); RED BLOOD COUNT 3.38 10^6/uL (4.00-5.40)
[2019-03-22 07:00] LABS: ALBUMIN 2.4 GM/DL (3.2-5.2); ALT/SGPT 40 U/L (12-78); BILIRUBIN,TOTAL 0.6 MG/DL (0.2-1.0); BLOOD UREA NITROGEN 12 MG/DL (7-18); CALCIUM LEVEL 8.9 MG/DL (8.8-10.2); CARBON DIOXIDE LEVEL 24 MEQ/L (21-32); CHLORIDE LEVEL 103 MEQ/L (98-107); CREATININE FOR GFR 0.88 MG/DL (0.55-1.30); GLOMERULAR FILTRATION RATE > 60.0 (>45); GLUCOSE, FASTING 85 MG/DL (70-100); POTASSIUM SERUM 3.5 MEQ/L (3.5-5.1); SODIUM LEVEL 138 MEQ/L (136-145); TOTAL PROTEIN 6.4 GM/DL (6.4-8.2)
[2019-03-22] MEDS: OMEPRAZOLE 20 MG CAP PO SCH (08:46)
[2019-03-22] MEDS: HEPARIN SOD (PORCINE) 5000 UNITS/ML VIAL SC SCH ×2 (08:46→20:01)
[2019-03-22] MEDS ORDERED: FUROSEMIDE 20 MG TAB PO ONE (11:00)
--- NOTE | 2019-03-22 13:27 | DS.PDOC ---
Discharge Summary General Date of Admission March 16, 2019 at 17:07 Date of Discharge 03/22/19 Discharge Summary PROCEDURES PERFORMED DURING STAY: lymph node biopsy DISCHARGE DIAGNOSES: 1. hypercalcemia 2. high suspicion of malignancy - pending lymph node biopsy results 3. fluid overload COMPLICATIONS/CHIEF COMPLAINT: Hypercalcemia. HISTORY OF PRESENT ILLNESS: The patient is a 63-year-old white female without significant past medical history, presents to the ED for evaluation of abdominal pain, fever, chills, night sweats. She lost about 10 pounds in the last few weeks, watery diarrhea. She was given ampicillin treatment for a possible sinus infection recently. Due to worsening abdominal pain, she decided to come to the ER for the following evaluation. In the ER, her initial blood work, the calcium was high at 16 and potassium was down to 3.1. She had a CT of the abdomen and pelvis done in the ER, which indicated she has extensive lymphadenopathy and is consistent with lymphoma and she was given intravenous (IV) fluid in the ER and medicine service was called for the admission. HOSPITAL COURSE: Patient's hypercalcemia responded well to IV fluids. She was seen in consultation by surgery for lymph node biopsy. She was slightly fluid overloaded, treated with oral diuretic therapy. Ultimately discharged home in stable condition with outpatient follow up with oncology and her PCP. DISCHARGE MEDICATIONS: Please see below. ALLERGIES: Please see below. PHYSICAL EXAMINATION ON DISCHARGE: VITAL SIGNS: Please see below. GENERAL: NAD HEENT: NC, bandages in place left neck CARDIOVASCULAR: +S1S2, RRR RESPIRATORY: CTA B/L ABDOMINAL: soft, +BS, NT, obese EXTREMITIES: trace peripheral edema NEUROLOGICAL: non focal PSYCHOLOGICAL: normal mood LABORATORY DATA: Please see below. ACTIVITY: [As tolerated]. DIET: regular diet DISCHARGE INSTRUCTIONS: 1. follow up with pcp. 2. follow up with oncology. ITEMS TO FOLLOWUP ON ON OUTPATIENT: 1. lymph node biopsy results DISCHARGE CONDITION: [Stable]. TIME SPENT ON DISCHARGE: 35 minutes. Vital Signs/I&Os Vital Signs Date Time Temp Pulse Resp B/P (MAP) Pulse Ox O2 Delivery O2 Flow Rate FiO2 03/22/19 06:49 16 03/22/19 06:00 97.9 99 152/59 (90) 95 03/16/19 19:30 Room Air I&O- Last 24 Hours up to 6 AM 03/22/19 06:00 Intake Total 1415 ml Output Total 2600 ml Balance -1185 ml Laboratory Data Labs 24H Laboratory Tests 2 03/22/19 05:50: Nucleated Red Blood Cells % (auto) 0.0, Anion Gap 11, Glomerular Filtration Rate > 60.0, Blood Urea Nitrogen 12, Creatinine 0.88, Sodium Level 138, Potassium Level 3.5, Chloride Level 103, Carbon Dioxide Level 24, Calcium Level 8.9#, Aspartate Amino Transf (AST/SGOT) 58H, Alanine Aminotransferase (ALT/SGPT) 40, Alkaline Phosphatase 64, Total Bilirubin 0.6, Total Protein 6.4, Albumin 2.4L, Albumin/Globulin Ratio 0.60L CBC/BMP Laboratory Tests 03/22/19 05:50 Red Blood Count 3.38 L, Mean Corpuscular Volume 91.4, Mean Corpuscular Hemoglobin 29.3, Mean Corpuscular Hemoglobin Concent 32.0, Red Cell Distribution Width 19.4 H, Calcium Level 8.9 #, Aspartate Amino Transf (AST/SGOT) 58 H, Alanine Aminotransferase (ALT/SGPT) 40, Alkaline Phosphatase 64, Total Bilirubin 0.6, Total Protein 6.4, Albumin 2.4 L Microbiology Microbiology 03/16/19 Blood Culture - Final, Complete NO GROWTH AFTER 5 DAYS 03/16/19 Blood Culture - Final, Complete NO GROWTH AFTER 5 DAYS 03/16/19 Respiratory Virus Panel (PCR) (YANETH) - Final, Complete Human Rhinovirus/Enterovirus Discharge Medications Scheduled Amoxicillin/Potassium Clav (Amox-Clav 875-125 mg Tablet) 1 Each Tablet, 1 TAB PO BID, (Reported) STARTED 03/18 Duloxetine Hcl (Duloxetine HCl) 60 Mg Capsule.dr, 60 MG PO QHS, (Reported) RX WRITTEN FOR BID, PATIENT TAKES ONE HS Levocetirizine Dihydrochloride (Levocetirizine Dihydrochloride) 5 Mg Tablet, 5 MG PO BID, (Reported) Omeprazole (Omeprazole) 40 Mg Capsule.dr, 40 MG PO DAILY, (Reported) Scheduled PRN Albuterol Sulfate (Albuterol Sulfate) 2.5 Mg/0.5 Ml Vial.neb, 1 INHALATION INH Q4H PRN for SHORTNESS OF BREATH, (Reported) Hydrocodone/Acetaminophen (Hydrocodone-Acetamin 5-325 mg) 1 Each Tablet, 1-2 TAB PO Q8H PRN for PAIN, (Reported) Prochlorperazine Maleate (Prochlorperazine Maleate) 10 Mg Tablet, 10 MG PO Q6H PRN for NAUSEA OR VOMITING, (Reported) PATIENT STATES SHE HAS NOT STARTED THIS MEDICATION Allergies Coded Allergies: Sulfa (Sulfonamide Antibiotics) (Verified Adverse Reaction, Intermediate, ITCHING, 03/16/19) CHUCK HAYS MD March 22, 2019 13:27
[2019-03-22 14:00] VITALS: BP 129/65
--- NOTE | 2019-03-22 16:31 | IPNPDOC ---
Text Note Date of Service The patient was seen on 03/22/19. NOTE Subjective: Patient seen and examined at bedside. Patient feels short of breath, with generalized edema today but improved from yesterday. No other medical complaints. Objective: PHYSICAL EXAMINATION: VITAL SIGNS: Please see below. GENERAL: AA Ox3, not in acute distress HEENT: atraumatic; +enlarged LN in left neck (2x3 cm) CARDIOVASCULAR: +S1S2, RRR RESPIRATORY: clear, no wheezing no rales ABDOMINAL: soft, +BS, NT EXTREMITIES: peripheral edema PSYCH: anxious LABORATORY DATA, IMAGING STUDIES, MICROBIOLOGY: Please see below. A/P: 63 yo female for hypercalcemia likely related to malignancy 1. Hypercalcemia, likely related to malignancy resolved after IVF, lasix and Pamidronate 2. Hypokalemia, resolved 3. Lymphadenopathy, ?lymphoma Neck and chest CT showed enlarged LN in left neck and left armpit Surgery consulted s/p LN biopsy today - observe overnight 4. Heparin is for DVT Prophylaxis 5. leukocytosis 6. SOB/edema - likely secondary to fluid overload - CXR noted - Lasix administered today - continue to follow clinically Dispo: anticipate discharge home in 24 hours VS,Fishbone, I+O VS, Fishbone, I+O Laboratory Tests 03/22/19 05:50 Red Blood Count 3.38 L, Mean Corpuscular Volume 91.4, Mean Corpuscular Hemoglobin 29.3, Mean Corpuscular Hemoglobin Concent 32.0, Red Cell Distribution Width 19.4 H, Calcium Level 8.9 #, Aspartate Amino Transf (AST/SGOT) 58 H, Alanine Aminotransferase (ALT/SGPT) 40, Alkaline Phosphatase 64, Total Bilirubin 0.6, Total Protein 6.4, Albumin 2.4 L Vital Signs Date Time Temp Pulse Resp B/P (MAP) Pulse Ox O2 Delivery O2 Flow Rate FiO2 03/22/19 14:00 98.7 110 19 129/65 (86) 94 03/16/19 19:30 Room Air I&O- Last 24 Hours up to 6 AM 03/22/19 06:00 Intake Total 1415 ml Output Total 2600 ml Balance -1185 ml CHUCK HAYS MD March 22, 2019 16:31
[2019-03-22] MEDS ORDERED: FUROSEMIDE 40 MG TAB PO ONE (16:45)
[2019-03-22] MEDS: DULoxetine 30 MG CAP (CYMBALTA) PO SCH (20:01)
[2019-03-22 22:00] VITALS: BP 130/69
[2019-03-23] MEDS: NORCO, ANEXSIA 5/325MG TABLET (HYDROcodone/ACETAMINOPHEN) PO PRN ×2 (01:26→09:00)
[2019-03-23] MEDS: PROCHLORPERAZINE 5 MG TAB (S0183) PO PRN (01:30)
[2019-03-23 06:00] VITALS: BP 131/59
[2019-03-23 06:32] LABS: HEMATOCRIT 29.5 % (36.0-47.0); HEMOGLOBIN 9.6 g/dl (12.0-15.5); MEAN CORPUSCULAR HGB CONC 32.5 g/dl (32.0-36.5); MEAN CORPUSCULAR VOLUME 89.1 fl (80.0-96.0); PLATELET COUNT, AUTOMATED 219 10^3/uL (150-450); RED BLOOD COUNT 3.31 10^6/uL (4.00-5.40); WHITE BLOOD COUNT 14.9 10^3/uL (4.0-10.0)
[2019-03-23 06:48] LABS: BLOOD UREA NITROGEN 12 MG/DL (7-18); CALCIUM LEVEL 8.5 MG/DL (8.8-10.2); CARBON DIOXIDE LEVEL 27 MEQ/L (21-32); CHLORIDE LEVEL 99 MEQ/L (98-107); CREATININE FOR GFR 0.85 MG/DL (0.55-1.30); GLOMERULAR FILTRATION RATE > 60.0 (>45); GLUCOSE, FASTING 102 MG/DL (70-100); POTASSIUM SERUM 3.4 MEQ/L (3.5-5.1); SODIUM LEVEL 136 MEQ/L (136-145)
[2019-03-23 08:16] LABS: MAGNESIUM LEVEL 1.2 MG/DL (1.8-2.4)
[2019-03-23] MEDS: OMEPRAZOLE 20 MG CAP PO SCH (08:59)
[2019-03-23] MEDS: HEPARIN SOD (PORCINE) 5000 UNITS/ML VIAL SC SCH (08:59)
[2019-03-23] MEDS ORDERED: POTASSIUM CHLORIDE 10 MEQ SR TABLET PO ONE (09:00)
[2019-03-23] MEDS ORDERED: AUGMENTIN 875 MG TAB PO ONE (09:45)
--- NOTE | 2019-03-23 10:00 | IPNPDOC ---
Text Note Date of Service The patient was seen on 03/23/19. NOTE Discharge Addendum Patient's discharge held over from yesterday due to fluid overload, shortness of breath. Patient responded well to further diuresis with lasix. Today she is feeling well. Her magnesium is low which will be repleted prior to discharge. No changes to discharge instructions. Please refer to discharge summary for full details. VS,Fishbone, I+O VS, Fishbone, I+O Laboratory Tests 03/23/19 05:43 Red Blood Count 3.31 L, Mean Corpuscular Volume 89.1, Mean Corpuscular Hemoglobin 29.0, Mean Corpuscular Hemoglobin Concent 32.5, Red Cell Distribution Width 18.7 H, Calcium Level 8.5 L Vital Signs Date Time Temp Pulse Resp B/P (MAP) Pulse Ox O2 Delivery O2 Flow Rate FiO2 03/23/19 09:00 19 03/23/19 06:00 98.1 106 131/59 (83) 94 I&O- Last 24 Hours up to 6 AM0 03/23/19 06:00 Intake Total 360 ml Output Total 2700 ml Balance -2340 ml CHUCK HAYS MD March 23, 2019 10:00
[2019-03-23] MEDS: MAG SULF 1GM/100ML (MAG RUN) 1 GM in APPROPRIATE DILUENT 1 EA IV SCH ×3 (11:00→12:03)
[2019-03-23 14:00] VITALS: BP 131/64
[2019-03-23] MEDS ORDERED: FUROSEMIDE 40 MG TAB PO ONE (16:00)
[2019-03-23] MEDS ORDERED: FURO20TA2 PO (16:04)
== END 2019-03-23 16:27 | disposition home or self-care (01) | DRG 681 ==
LOC: M ED 13:13 → M ED INP 17:07 → M MSPAV 19:41
PROVIDERS: ADMIT Hospitalist; ATTEND Internal Medicine
PROC: 07B20ZX Excision of Left Neck Lymphatic, Open Approach, Diagnostic (ICD-10-PCS; principal; 2019-03-20 12:00)
DX: C85.11 Unspecified B-cell lymphoma, lymph nodes of head, face, and neck (principal); E83.52 Hypercalcemia; E86.0 Dehydration; Z88.2 Allergy status to sulfonamides; K21.9 Gastro-esophageal reflux disease without esophagitis; F32.9 Major depressive disorder, single episode, unspecified; Z87.891 Personal history of nicotine dependence; E87.6 Hypokalemia; D72.829 Elevated white blood cell count, unspecified

== ENCOUNTER → 2019-04-30 | Outpatient (CLI) | payer BC ==
[~2019-04-30] MED LIST: ALB2.5NEB INH; ALPR0.25 PO; AMOX875T2 PO; BUPIVACAINE HCL 0.5% 10 ML VIAL As Ordered ONE; DECA4TAB PO; DULO1CAP6 PO; FURO20TA2 PO; HYDR-3363 PO; HYDR-3713 PO; KLOR20TA42 PO; LASI20TA3 PO; LEVOTAB10 PO; LIDO2.5C15 TOP; LIDOCAINE 2% MDV 20 ML VIAL As Ordered ONE; MAGICMW SSP; OMEP-221 PO; ONDA8TAB7 PO; PRED20TA PO; PROC10TA4 PO; VANC125C3 PO; ZOFR8TAB24 PO; ZYLO300T6 PO; ceFAZolin 1GM INJ (J0690 PER 500MG) As Ordered ONE
--- NOTE | 2019-05-01 20:23 | ROOPDOC ---
[facility] Report Of Operation Report of Operation DATE OF PROCEDURE: 04/30/2019 PREOPERATIVE DIAGNOSIS: Lymphoma. POSTOPERATIVE DIAGNOSIS:,. PROCEDURE: Ultrasound guided right internal jugular vein cannulation. Fluoroscopic guided right internal jugular vein tunneled central venous catheter with subcutaneous port placement with placement of a power injectable [employer] [place] Power Port with 24 centimeter length catheter. SURGEON: Dr. Neo Marrero M.D. EXEC. CREATIVE DIRECTOR: Abhishek ANESTHESIA: Local with 20 mL of 2% lidocaine mixed with 0.5% Marcaine. ANTIBIOTICS: Ancef 2 g FLUOROSCOPY TIME: 0.1 minutes. CONTRAST: None. ESTIMATED BLOOD LOSS: 15 mL. IV FLUID: 100 mL. COMPLICATIONS: None. DRAINS: None. SPECIMENS: None. IMPLANTS: Right internal jugular vein tunneled central venous catheter with subcutaneous port placement using a [employer] [place] Power Port which is power injectable. INDICATION: Patient is a 63-year-old female with lymphoma who requires central venous access for chemotherapy instillation. Patient will undergo a right tunneled central venous catheter placement with subcutaneous port. Procedure was described and explained to the patient in detail including drawing of pictures showing the procedure and anatomy associated with insertion of the tunneled central venous catheter was subcutaneous port. Risks, benefits, and alternative treatment options were discussed with the patient. Alternative treatment options included, but were not limited to, no i ntervention. Benefits included, but were not limited to, access for chemotherapy infusion centrally, avoiding recurrent venous cannulations , IV placements and sclerosis of peripheral veins. Risks included, but were not limited to, infection, bleeding, pneumothorax, hemothorax, possible need for further open surgical intervention, renal failure requiring hemodialysis, failure of the tunneled central venous catheter with subcutaneous port to function requiring evaluation, revision and/or replacement, adverse and/or allergic reaction to the sedation medications and/or local anesthetics, anesthetic and sedation complication, possible need for transfusion of blood products, allergic reaction and/or complication from the prepping and draping materials, bruising, scarring, cerebrovascular accident, myocardial infarction, pulmonary embolus, deep venous thrombosis, poor satisfaction, poor r esults, poor outcome, loss of limb and loss of life. Risks of not performing the port insertion included but were not limited to inability to gain access for chemotherapy, inability to gain access for blood draws and laboratory evaluation, sclerosis and thrombophlebitis of peripheral veins and pain associated with continued peripheral cannulations. Patient's questions were answered. Patient voices understanding of these risks, benefits, and alternative treatment options. Patient voices acceptance of the risks associated with placement of a central venous tunneled catheter with subcutaneous port placement and consents to proceed with tunneled central venous catheter with subcutaneous port placement. No guarantees or promises were made to the patient regarding the results or outcome of the procedure. DESCRIPTION OF PROCEDURE: Patient was taken to the angiography suite, placed supine on the angiography room table, and prepped and draped in a standard surgical fashion. A time-out was conducted by myself and the team members involved in the procedure, confirming the correct procedure, patient, and laterality. Ultrasound was then used to evaluate the right internal jugular vein, which was noted to be easily compressible, widely patent, and free of thrombus. Ultrasound was then used to guide cannulation of the right internal jugular vein with a micropuncture needle with real-time concurrent visualization of the entry of the needle into the right internal jugular vein with a hardcopy image preserved. The skin overlying the right internal jugular vein was anesthetized with 2% lidocaine mixed with 0.5% Marcaine prior to cannulation. Once the right internal jugular vein was cannulated, the micropuncture wire was advanced through the micropuncture needle, which was up-sized to a micropuncture sheath. A J wire was advanced through the micropuncture sheath. The right internal jugular vein was then dilated under fluoroscopic guidance, and a #8-[place]izen [place] introducer sheath was positioned through the right internal jugular vein into the superior vena cava. The wire was removed, and the #8-[place]izen [place] single lumen catheter, which had been tunneled from a puncture wound in the right chest and brought out at the puncture wound at the right internal jugular vein entry site, was advanced through the introducer sheath under fluoroscopic guidance. The introducer sheath was then removed, and the catheter was positioned with the tip in the superior vena cava/right atrial junction under fluoroscopic guidance. The catheter was cut to a length of 24 cm and attached to the port. A pocket was created in the right chest after anesthetizing the overlying tissue with 2% lidocaine mixed with 0.5% Marcaine. The port was placed in the pocket and cannulated using an access needle. The port was noted to aspirate and flush easily and then was flushed with heparinized saline. The incision in the chest was closed using # 4-0 Monocryl suture in inverted interrupted fashion. The puncture wound in the right neck was closed using a #4-0 Monocryl in inverted interrupted fashion. Steri-Strips and dressings were applied. Patient tolerated the procedure well. All instrument, sponge, and needle counts were correct at the end of the case. There were no complications. Dr. Marrero was present for and directed the entire case. Patient was transferred to the recovery area and subsequently discharged in stable condition. The tunneled central venous catheter with subcutaneous port is stable for use for access. RADIOLOGIC SUPERVISION AND INTERPRETATION: The ultrasound showed the right internal jugular vein to be easily compressible, widely patent, and free of thrombus. Ultrasound was used to guide cannulation of the right internal jugular vein with real-time concurrent visualization of the entry of the needle into the right internal jugular vein. The right internal jugular vein was then dilated under fluoroscopic guidance with a #8-[place] introducer sheath placed under fluoroscopic guidance. The 8 [place] single lumen catheter was advanced through the introducer sheath positioned with the tip in the superior vena/right atrial junction using fluoroscopic guidance with final fluoroscopic image showing the catheter and port to be in good position and good alignment with the tip in the superior vena cava/right atrial junction with no pneumo- or hemothorax noted. The tunneled central venous catheter with subcutaneous port is stable for use. Leland Marrero MD May 01, 2019 20:23
== END ==
LOC: M IRPRO 10:02
PROVIDERS: ATTEND Internal Medicine
DX: C85.10 Unspecified B-cell lymphoma, unspecified site (principal); F32.9 Major depressive disorder, single episode, unspecified; K21.9 Gastro-esophageal reflux disease without esophagitis; M19.90 Unspecified osteoarthritis, unspecified site
CPT/HCPCS: 36563; 76937; C1788; C1894; J0690

== ENCOUNTER → 2019-05-04 | Outpatient (CLI) | payer BC ==
[~2019-05-04] MED LIST changes: -BUPIVACAINE HCL 0.5% 10 ML VIAL As Ordered ONE; +EMLA CREAM 5GM (LIDOCAINE/PRILOCAINE) As Ordered ONE; +GASTROGRAFIN SOLUTION 30ML (Q9963) As Ordered ONE; +ISOVUE-370 76% 100ML VIAL (Q9967) As Ordered ONE; -LIDOCAINE 2% MDV 20 ML VIAL As Ordered ONE; +ONDA8TAB10 PO; -ONDA8TAB7 PO; +PRED50TA PO; -ceFAZolin 1GM INJ (J0690 PER 500MG) As Ordered ONE
--- NOTE | 2019-05-05 07:14 | REP ---
CT chest with IV contrast: History: Chest and abdomen mass. Restaging diffuse large B-cell lymphoma. Comparison chest CT study March 18, 2019. CT contrast dose: 100 ml of intravenous Isovue 370 is administered. Findings: The patient's multifocal adenopathy has improved dramatically. The largest left axillary lymph node measures 1.5 x 2.0 x 2.3 cm. Previously this lymph node measured 4.7 cm in greatest diameter. The left supraclavicular lymphadenopathy has decreased from 5.1 cm greatest dimension to 2.5 cm. No mediastinal adenopathy is visible. Dilated main pulmonary arteries are again seen, particularly the left unchanged. There is a right-sided Pymdls-W-Odzr catheter. The retrocrural lymphadenopathy has dramatically improved as well although not resolved. The largest remaining retrocrural lymph node measures 1.8 cm in greatest diameter. The lung bishop show no evidence of infiltrate. There are mild emphysematous changes in the upper lobes bilaterally. There is linear fibrosis in the right base. No bony destructive lesion is seen. Impression: Substantial improvement in the previously noted left axillary, left supraclavicular, and retrocrural lymphadenopathy. Electronically Signed by Harjinder Rivera MD 05/05/2019 11:57 A
--- NOTE | 2019-05-05 07:19 | REP ---
CT abdomen with IV and oral contrast: History: Abdomen and chest mass. Follow up diffuse large B-cell lymphoma. CT contrast dose: 100 ml of intravenous Isovue 370. CT findings: There has been considerable improvement. There are still multiple small low-density nodules scattered about the spleen. The largest of these visible today has decreased from 4.9 cm to 2.8 cm in greatest diameter. The spleen measures 14 cm in greatest diameter. No focal liver lesion is appreciated. Improvement is noted in the retrocrural adenopathy as reported in the chest CT. The upper abdominal lymphadenopathy is improved. Fairly bulky periaortic retroperitoneal adenopathy persists although dramatically improved from the prior study. The area previously measured at 14.2 x 11.4 cm in greatest transverse dimension now measures 10.2 x 5.6 cm. The adenopathy persists to the aortic bifurcation into the iliac lymph node chains. There are some improved mesenteric lymph nodes as well in the abdomen. No new adenopathy is seen. There is however, streaky infiltrative process in the perinephric fat adjacent to the left kidney. This is improved from the prior study. This area currently measures 4.1 x 5.0 cm in transverse dimension, previously 8.6 x 8.8 cm. No new renal or pararenal disease. No bony destructive lesion is appreciated. Interval partial collapse of the superior endplate on the left side of the L2 vertebral body is seen with healing sclerosis. Impression: Significant improvement noted in the retroperitoneal adenopathy and the left perirenal disease. Improvement noted in mesenteric adenopathy as well. Electronically Signed by Harjinder Rivera MD 05/05/2019 11:57 A
== END ==
LOC: M RAD 13:35
PROVIDERS: ATTEND Internal Medicine
DX: C83.30 Diffuse large B-cell lymphoma, unspecified site (principal)
CPT/HCPCS: 71260; 74160; Q9963; Q9967

== ENCOUNTER → 2019-05-18 | Outpatient (CLI) | payer BC ==
[~2019-05-18] MED LIST changes: -EMLA CREAM 5GM (LIDOCAINE/PRILOCAINE) As Ordered ONE; -GASTROGRAFIN SOLUTION 30ML (Q9963) As Ordered ONE; -ISOVUE-370 76% 100ML VIAL (Q9967) As Ordered ONE; -ONDA8TAB10 PO; +ONDA8TAB7 PO; -PRED50TA PO
--- NOTE | 2019-05-18 12:23 | REP ---
GATED CARDIAC BLOOD POOL NUCLEAR SCAN: Following the intravenous administration of 25 mCi technetium 99m in vitro labeled red blood cells using the UltraTag method, cine images and static images are performed of the heart in the various projections. Left ventricular wall motion appears adequate and relatively symmetrical. Left ventricular ejection fraction is calculated to be 51.9%. Electronically Signed by Natanael Fiore MD 05/22/2019 05:30 P
== END ==
LOC: M RAD 09:10
PROVIDERS: ATTEND Internal Medicine
DX: C34.90 Malignant neoplasm of unspecified part of unspecified bronchus or lung (principal)
CPT/HCPCS: 78472; A9560

== ENCOUNTER → 2019-08-03 | Outpatient (CLI) | payer BC ==
[~2019-08-03] MED LIST changes: +GASTROGRAFIN SOLUTION 30ML (Q9963) As Ordered ONE; +ISOVUE-370 76% 100ML VIAL (Q9967) As Ordered ONE; +PRED50TA PO
--- NOTE | 2019-08-03 15:39 | REP ---
SOFT-TISSUE NECK CT STUDY WITH IV CONTRAST: History: Stage III B-cell lymphoma. Congestion. Comparison CT neck study March 18, 2019. CT contrast dose: 100 mL of intravenous Isovue 370. CT findings: There is an Upqbse-X-Ifgx catheter in the right internal jugular vein with its tip seen coursing into the superior vena cava. The previously noted cervical lymphadenopathy has resolved. There are surgical clips adjacent to the left parotid gland status post excision of one of these lymph nodes. There is no new adenopathy seen. The internal carotid arteries are tortuous and approach each other in the midline retropharyngeal region. The visualized paranasal sinuses are clear. No bony destructive lesion is seen. Parotid and submandibular glands are normal and symmetric. Thyroid lobes are unremarkable. No laryngeal or subglottic airway lesion is appreciated. The lung apices are clear. Impression: The previously noted cervical adenopathy has resolved. There is an Vjoxmb-H-Yrjk catheter in place. No new adenopathy is seen. Electronically Signed by Harjinder Rivera MD 08/03/2019 03:44 P
--- NOTE | 2019-08-03 15:46 | REP ---
CT brain without and with IV contrast: History: Stage III B-cell lymphoma. No comparison brain imaging. CT contrast dose: 100 mL of intravenous Isovue 370. CT findings: Bony calvarium is intact. Vascular calcification is noted in the distal carotid arteries bilaterally. Visualized paranasal sinuses are clear. There is mild generalized volume loss. There are periventricular low density changes in the white matter of the left frontal and right parietal lobe consistent with small vessel atherosclerotic change. There is no evidence of infarction, mass, extra-axial fluid collection or midline shift. Contrast enhanced study shows enhancement in normal vasculature. No abnormal intracranial contrast enhancement is appreciated. Impression: Generalized atrophy, small vessel changes, and vascular calcification. No acute intracranial abnormality. Electronically Signed by Harjinder Rivera MD 08/03/2019 04:03 P
--- NOTE | 2019-08-03 15:47 | REP ---
Maxillofacial CT study with IV contrast: History: Stage III B-cell lymphoma. Comparison is made with soft tissue neck CT from March 18, 2019. CT contrast dose: 100 mL of intravenous Isovue 370. CT findings: Frontal, ethmoid, sphenoid, maxillary, and mastoid sinuses are clear bilaterally. Bony nasal septum is essentially in the midline. Nasal turbinate and soft tissues are unremarkable. No intraorbital mass is seen. Tonsillar and peritonsillar soft tissues are unremarkable and symmetric. The parotid glands show no abnormality. There is a surgical clip along the posteroinferior margin of the superficial lobe of the left parotid gland. There is no evidence of adenopathy. There is a 7 x 11 mm lymph node deep to the sternocleidomastoid muscle on the left, normal in size now, previously 2.8 x 2.5 cm. Impression: No evidence of mass or adenopathy. Electronically Signed by Harjinder Rivera MD 08/03/2019 04:03 P
--- NOTE | 2019-08-03 15:52 | REP ---
CT CHEST WITH IV CONTRAST: TECHNIQUE: Axial contrast enhanced images from the thoracic inlet to the upper abdomen using 100 mL Isovue 370 intravenous contrast material with multiplanar reformations. COMPARISON: 05/04/2019 There is further decrease in size of the lymph nodes in the left axillary region, left supraclavicular region and retrocrural region. The largest left axillary lymph node now measures 13 x 10 mm. The left supraclavicular node measures approximately 2.0 x 1.5 cm. Two retrocrural lymph nodes on the right measure 1.1 cm and 1.2 cm in short axis dimension. There are no significantly enlarged lymph nodes in the mediastinum or hilar regions. There is no thoracic aortic aneurysm. There is dilatation of the pulmonary trunk. Heart is not enlarged. There is no pleural or pericardial effusion. There are degenerative changes of the spine. A right central venous catheter is present. The tip is at the junction of the superior vena cava and right atrium. IMPRESSION: Further decrease in size of left axillary, supraclavicular and retrocrural lymph nodes. No new adenopathy. Electronically Signed by Natanael Fiore MD 08/07/2019 08:57 A
--- NOTE | 2019-08-03 15:57 | REP ---
CT ABDOMEN AND PELVIS WITH ORAL AND IV CONTRAST: TECHNIQUE: Axial contrast enhanced images from the lung bases to the pubic symphysis using 100 mL Isovue 370 intravenous contrast material with multiplanar reformations. COMPARISON: 05/04/2019 The liver is unremarkable as is the gallbladder. There is no biliary dilatation. The spleen again demonstrates multiple low density nodules but these have decreased in number and size. Adrenal glands are normal. The pancreas is unremarkable. Right kidney is unremarkable. There is again abnormal soft tissue density around the lower pole of the left kidney. This has significantly improved. There is extensive periaortic adenopathy extending somewhat into the bilateral iliac regions. This has significantly improved, with significant decrease in size of the adenopathy. There is also decrease in size and number of mesenteric adenopathy. No bowel wall thickening is seen. There is no other evidence of pelvic mass. Urinary bladder is not well distended and not well evaluated. There are mild degenerative changes of the spine. IMPRESSION: Improvement of periaortic and bi-iliac adenopathy with significant decrease in size. Significant improvement also of mesenteric adenopathy. There is decrease size and number of splenic nodules. Decreased size of abnormal soft tissue along the lower pole of the left kidney. Electronically Signed by Natanael Fiore MD 08/07/2019 08:57 A
== END ==
LOC: M RAD 12:46
PROVIDERS: ATTEND Internal Medicine Medical Oncology
DX: C83.30 Diffuse large B-cell lymphoma, unspecified site (principal); Z95.5 Presence of coronary angioplasty implant and graft
CPT/HCPCS: 70470; 70487; 70491; 71260; 74177; Q9963; Q9967

== ENCOUNTER → 2019-08-21 | Outpatient (CLI) | payer BC ==
[~2019-08-21] MED LIST changes: -GASTROGRAFIN SOLUTION 30ML (Q9963) As Ordered ONE; -ISOVUE-370 76% 100ML VIAL (Q9967) As Ordered ONE
--- NOTE | 2019-08-22 09:23 | REP ---
PET/CT: History: Restaging large B-cell lymphoma. Status post six cycles of chemotherapy. Comparisons: Comparison PET/CT study May 15, 2019. Comparison neck, chest, and abdominal CT study August 03, 2019. TECHNIQUE: 58 minutes following the intravenous injection of a 8.57 mCi dose of F-18 FDG, three-dimensional PET scintigraphy is acquired from the skull base to the proximal thighs. Triplanar noncontrast CT scanning is acquired through the same anatomic range for attenuation correction, and image registration with scan parameters optimized to minimize radiation exposure to the patient. PET scintigraphy and CT datasets were fused and displayed on a workstation with multiplanar and projection display capability. PET/CT Findings: Head and neck soft tissues are unremarkable. There is no abnormal hypermetabolic uptake or visible adenopathy. There is a right sided [id number] catheter. No abnormal shandra uptake is seen in the mediastinum or hilar regions of the chest. 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 There is a zone of linear discoid atelectasis in the left lower lobe without hypermetabolic uptake. In the abdomen and pelvis, there is some residual periaortic tissue where previous study showed bulky adenopathy. This is markedly improved. There is discernible FDG accumulation in this periaortic tissue, but uptake is minimal, maximum standard uptake value 3.02. This residual periaortic tissue is much smaller than on the May 15, 2019 study. Maximum standard uptake value in this tissue on May 15, 2019 is 2.54, similar to today. No abnormal pelvic uptake is seen. Impression: Continued morphologic improvement in the retroperitoneal adenopathy which is yet again smaller. Discernible but not frankly hypermetabolic FDG uptake is seen in this tissue. Electronically Signed by Harjinder Rivera MD 08/22/2019 09:51 A
== END ==
LOC: M PLARAD 12:37
PROVIDERS: ATTEND Internal Medicine Medical Oncology
DX: C83.31 Diffuse large B-cell lymphoma, lymph nodes of head, face, and neck (principal); Z92.21 Personal history of antineoplastic chemotherapy; J98.11 Atelectasis; I28.1 Aneurysm of pulmonary artery
CPT/HCPCS: 78815; A9552

== ENCOUNTER → 2019-12-10 | Outpatient (CLI) | payer BC ==
[~2019-12-10] MED LIST changes: +GASTROGRAFIN SOLUTION 30ML (Q9963) As Ordered ONE; +ISOVUE-370 76% 100ML VIAL (Q9967) As Ordered ONE; +ONDA8TAB10 PO; -ONDA8TAB7 PO
--- NOTE | 2019-12-10 13:15 | REP ---
Clinical: Lymphoma. Restaging. Technique: Axial contrast enhanced images from the lung bases to the pubic symphysis using oral (per protocol) and 100 ml Isovue 370 intravenous contrast material with coronal and sagittal re-formations. Delayed images of the abdomen obtained. Comparison: 08/03/2019 Findings: Retroperitoneal and pelvic sidewall adenopathy is again noted, mildly decreased from prior examination. As example, left periaortic lymph node at the level of the L3 and the lower pole of the left kidney measures approximately 2.0 x 2.2 cm and previously measured 2.7 x 3.0 cm. Conglomerate adenopathy at the level of the left renal pelvis previously measured roughly 2.8 cm in maximal width and currently measures 1.7 cm maximal with at the same level. Liver, spleen, pancreas, gallbladder, bilateral adrenal glands and kidneys are relatively normal / stable. Small area of soft tissue along the inferior pole of the left kidney and left perinephric stranding remains unchanged. Evaluation of the enteric system is without obstruction. Colonic diverticulosis noted without acute diverticulitis. The appendix appears mildly prominent with subtle enhancement and periappendiceal stranding raising the possibility of mild acute/chronic appendicitis and clinical correlation is recommended. Pelvis demonstrates normal bladder and age-appropriate uterus/adnexa. No pelvic fluid or ascites. No free air. Abdominal aorta and vasculature without aneurysm or dissection. Musculoskeletal structures demonstrate degenerative changes without acute focal abnormality. Lung bases demonstrate stable chronic changes. Impression: 1. Retroperitoneal and pelvic sidewall adenopathy mildly decreased from prior examination. No new mass lesion, adenopathy, or ascites. 2. Subtle prominence to the appendix as described above raises the possibility of mild acute/chronic appendicitis and correlation is warranted. Electronically Signed by Krishan Morris MD 12/10/2019 01:07 P
--- NOTE | 2019-12-10 13:24 | REP ---
Clinical: Lymphoma. Restaging. Technique: Axial contrast enhanced images from the thoracic inlet to the upper abdomen with coronal and sagittal re-formations using 100 ml Isovue 370 intravenous contrast material. Comparison: 08/03/2019. Findings: No significant supraclavicular, axillary, hilar, or mediastinal adenopathy is appreciated. Lung bishop demonstrate diffuse chronic interstitial changes with mild bronchiectasis and scarring similar to prior examination. Stable elevation of the pulmonary arterial trunk and left main pulmonary artery remains unchanged. There were no effusion. No pneumothorax. Thoracic aorta without aneurysm or dissection. No cardiomegaly or pericardial effusion. Surrounding musculoskeletal structures are intact without focal osseous abnormality. Impression: 1. No significant adenopathy. 2. Chronic stable interstitial changes, scattered scarring and mild bronchiectasis 3. No acute mediastinal or pleuroparenchymal process appreciated. Electronically Signed by Krishan Morris MD 12/10/2019 01:16 P
== END ==
LOC: M RAD 10:35
PROVIDERS: ATTEND Internal Medicine Medical Oncology
DX: C83.33 Diffuse large B-cell lymphoma, intra-abdominal lymph nodes (principal); J47.9 Bronchiectasis, uncomplicated
CPT/HCPCS: 71260; 74177; J1642; Q9963; Q9967

== ENCOUNTER → 2019-12-28 | Outpatient (CLI) | payer BC ==
[~2019-12-28] MED LIST changes: -GASTROGRAFIN SOLUTION 30ML (Q9963) As Ordered ONE; -ISOVUE-370 76% 100ML VIAL (Q9967) As Ordered ONE
--- NOTE | 2019-12-28 10:45 | REPVR ---
PROCEDURE INFORMATION: Exam: CT Head Without And With Contrast Exam date and time: 12/28/2019 9:57 AM Age: 64 years old Clinical indication: Pain; Other: Redness, swelling; Additional info: Iv port thrombosis, redness, swelling TECHNIQUE: Imaging protocol: Computed tomography of the head without and with intravenous contrast. Radiation optimization: All CT scans at this facility use at least one of these dose optimization techniques: automated exposure control; mA and/or kV adjustment per patient size (includes targeted exams where dose is matched to clinical indication); or iterative reconstruction. Contrast material: ISOVUE 370; Contrast volume: 75 ml; Contrast route: PORT; COMPARISON: CT Head W/O FOLL BY WITH CONTR 08/03/2019 2:39 PM FINDINGS: Brain: Normal. No hemorrhage. Unremarkable white matter. No mass effect. Ventricles: Normal. No ventriculomegaly. Bones/joints: Unremarkable. No acute fracture. Sinuses: Visualized sinuses are unremarkable. No fluid levels. Mastoid air cells: Visualized mastoid air cells are well aerated. Soft tissues: Unremarkable. Other findings: There are no regions of abnormal enhancement. IMPRESSION: 1. No acute intracranial process is identified. 2. There are no regions of abnormal enhancement. Electronically signed by: Hemanth Lopez On 12/28/2019 10:45:04 AM
--- NOTE | 2019-12-28 11:14 | REP ---
Right upper extremity duplex Doppler venous ultrasound. Real time compression and duplex Doppler evaluation of the right upper extremity deep venous system is performed. The right subclavian, jugular, axillary, brachial, basilic and cephalic veins are fully compressible where accessible with transducer pressure, and demonstrate no intraluminal thrombus and normal venous waveforms. There is no evidence of deep venous thrombosis. Impression: No evidence of deep venous thrombosis of the right upper extremity deep vein system. Electronically Signed by Natanael Fiore MD 12/28/2019 11:06 A
== END ==
LOC: M RAD 09:30
PROVIDERS: ATTEND Internal Medicine Medical Oncology
DX: C83.30 Diffuse large B-cell lymphoma, unspecified site (principal)
CPT/HCPCS: 70470; 93971; J1642; Q9967

== ENCOUNTER → 2020-02-12 | Outpatient (CLI) | payer BC ==
--- NOTE | 2020-02-13 11:13 | REP ---
REASON FOR EXAM: Restage B-cell lymphoma. Comparison examination 05/15/2019 on 08/21/2019 After the intravenous administration of 9.56 millicuries of FDG18, triplane whole body PET CT was performed from the skull base to the mid thigh. There is no abnormal hypermetabolic activity seen in the neck, chest, abdomen or pelvis. The paraaortic adenopathy seen on the latest prior examination has resolved. Nonenlarged paraaortic and pelvic sidewall lymph nodes are noted. Standard CT imaging shows no evidence of a new mass in the neck, chest, abdomen or pelvis. IMPRESSION: No abnormal hypermetabolic activity. Further improvement as described above. Electronically Signed by Memo Escobar DO 02/13/2020 11:39 A
== END ==
LOC: M PLARAD 10:14
PROVIDERS: ATTEND Internal Medicine Medical Oncology
DX: C85.11 Unspecified B-cell lymphoma, lymph nodes of head, face, and neck (principal)
CPT/HCPCS: 78815; A9552

== ENCOUNTER → 2020-07-29 | Outpatient (CLI) | payer BC ==
[~2020-07-29] MED LIST changes: +GASTROGRAFIN SOLUTION 30ML (Q9963) As Ordered ONE; +ISOVUE-370 76% 100ML VIAL As Ordered ONE
--- NOTE | 2020-08-05 08:30 | REP ---
CT CHEST WITH IV CONTRAST: HISTORY: Non-Hodgkins lymphoma. CT CONTRAST DOSE: 100ml of intravenous Isovue 370 is administered. COMPARISON: PET CT Study 02/12/20. Comparison chest CT 12/10/19. CHEST CT FINDINGS: There is a right side [id number] catheter. Some vascular calcifications seen in the coronary artery distribution. The main pulmonary arteries are somewhat dilated in this patient. Question pulmonary arterial hypertension. This is unchanged. No mediastinal mass or adenopathy is seen. No pleural or pericardial effusion is observed. No new lung infiltrate is seen. There is mild linear fibrosis and platelike atelectasis in the right middle lobe and mild platelike atelectasis or fibrosis is visible in the right lower lobe. These findings are unchanged. No new pulmonary nodule is seen. No bony destructive lesion is appreciated. IMPRESSION: Dilated central pulmonary arteries question pulmonary arterial hypertension unchanged. No mass or adenopathy seen. Stable chest CT findings. MTDD
--- NOTE | 2020-08-05 08:31 | REP ---
CT ABDOMEN AND PELVIS WITH IV AND ORAL CONTRAST: HISTORY: Non-Hodgkins lymphoma. COMPARISON: PET CT study 02/12/20. CT Abdomen and pelvis 12/10/19. CT CONTRAST DOSE: 100ml of intravenous Isovue [address] FINDINGS: Preliminary digital aircraft mechanic armament radiograph demonstrates an unremarkable bowel gas pattern. The liver and the spleen are normal in size and homogenous in texture. No abnormality is noted in the gallbladder or the pancreas. Normal adrenal glands. The kidneys enhance symmetrically and are morphologically intact on dual phase post-contrast imaging. No hydronephrosis seen. There is mild periaortic lymphadenopathy. This is similar in extent and size to the 12/10/2019 study with some decreased in overall attenuation suggesting slight improvement. No evidence of progression or new adenopathy. No pelvic mass or adenopathy is seen. No uterine or ovarian abnormality. There is left colonic diverticulosis without CT evidence of diverticulitis. No colonic mass lesion is observed. No abdominal wall defect is appreciated. No bony destructive lesion is seen. IMPRESSION: Stable to slightly improved periaortic lymphadenopathy. No new mass or adenopathy seen. Left colonic diverticulosis. MTDD
== END ==
LOC: M RAD 13:19
PROVIDERS: ATTEND Specialist
DX: C83.30 Diffuse large B-cell lymphoma, unspecified site (principal); I27.20 Pulmonary hypertension, unspecified

== ENCOUNTER → 2021-03-17 | Outpatient (CLI) | payer MEDICARE ==
[~2021-03-17] MED LIST changes: +LIDO1CRE42 TOP; -LIDO2.5C15 TOP
--- NOTE | 2021-03-17 15:11 | REPVR ---
PROCEDURE INFORMATION: Exam: CT Abdomen And Pelvis With Contrast Exam date and time: 03/17/2021 2:19 PM Age: 65 years old Clinical indication: Condition or disease; Cancer; Other: Lymphoma; Additional info: Lymphoma follow up TECHNIQUE: Imaging protocol: Computed tomography of the abdomen and pelvis with contrast. Total images: 543 Radiation optimization: All CT scans at this facility use at least one of these dose optimization techniques: automated exposure control; mA and/or kV adjustment per patient size (includes targeted exams where dose is matched to clinical indication); or iterative reconstruction. Contrast material: ISOUVE 370; Contrast volume: 100 ml; Contrast route: INTRAVENOUS (IV); COMPARISON: CT ABD PELVIS WITH CONTRAST 07/29/2020 3:06 PM FINDINGS: Liver: Normal. No mass. Gallbladder and bile ducts: Normal. No calcified stones. No ductal dilation. Pancreas: There are fatty involutional changes of the pancreas. Spleen: Normal. No splenomegaly. Adrenal glands: Normal. No mass. Kidneys and ureters: Normal. No hydronephrosis. Stomach and bowel: Moderate colonic diverticulosis without evidence of diverticulitis. The colon is otherwise unremarkable. No acute colonic distention or inflammation. Small bowel loops are normal in caliber. Stomach and duodenum are unremarkable. Appendix: No evidence of appendicitis. Intraperitoneal space: Unremarkable. No free air. No significant fluid collection. Vasculature: Unremarkable. No abdominal aortic aneurysm. Lymph nodes: There is no retrocrural, mesenteric, retroperitoneal, pelvic or inguinal lymphadenopathy. There is mild residual retroperitoneal fibrosis at the areas where there was lymphadenopathy previously. Urinary bladder: Urinary bladder is normal without wall thickening, mass or stone. Reproductive: Postmenopausal uterine and ovarian atrophy is appropriate for 65 years of age. The uterus is anteverted. No ovarian or adnexal abnormality. Bones/joints: Stable moderate compression fracture at the superior L2 endplate. Soft tissues: Stable small fat containing umbilical hernia, 2.5 x 3.4 x 2.9 cm. IMPRESSION: 1. No evidence of the residual or recurrent lymphoma. No lymphadenopathy. 2. Moderate colonic diverticulosis without evidence of diverticulitis. Electronically signed by: Keegan Simmons On 03/17/2021 15:10:35 PM
--- NOTE | 2021-03-17 15:20 | REPVR ---
PROCEDURE INFORMATION: Exam: CT Chest With Contrast; Diagnostic Exam date and time: 03/17/2021 2:19 PM Age: 65 years old Clinical indication: Lymphoma follow up TECHNIQUE: Imaging protocol: Diagnostic computed tomography of the chest with contrast. Total images: 483 Radiation optimization: All CT scans at this facility use at least one of these dose optimization techniques: automated exposure control; mA and/or kV adjustment per patient size (includes targeted exams where dose is matched to clinical indication); or iterative reconstruction. Contrast material: ISOVUE 370; Contrast volume: 100 ml; Contrast route: INTRAVENOUS (IV); COMPARISON: CT Chest with contrast 07/29/2020 3:06 PM FINDINGS: Tubes, catheters and devices: A right chest Mediport is in good position with its tip near the SVC/RA junction. Thyroid: The thyroid gland is normal. Trachea: Unremarkable. Bronchial tree: Unremarkable. Lungs: The lungs are clear. Pleural spaces: Unremarkable. No pneumothorax. No pleural effusion. Heart: Heart size is normal. Esophagus: Unremarkable. Mediastinal space: The esophagus is normal. Pulmonary arteries: Stable enlargement of the main, left and right pulmonary arteries is suggestive of pulmonary arterial hypertension. The right pulmonary artery is 3.0 cm at its origin. The left pulmonary artery is 4.5 cm at its origin. Aorta: Unremarkable. No aortic aneurysm. Lymph nodes: No evidence of recurrent or residual lymphoma. There is no hilar, mediastinal or axillary lymphadenopathy. Bones/joints: Unremarkable. No acute fracture. Diaphragm: Stable fat-containing Bochdalek's hernia at the posterior aspect of the right hemidiaphragm (sagittal image 44). IMPRESSION: 1. No evidence of recurrent or residual lymphoma. There is no hilar, mediastinal or axillary lymphadenopathy. 2. Stable enlargement of the central arteries is suggestive of pulmonary arterial hypertension. Electronically signed by: Keegan Simmons On 03/17/2021 15:20:25 PM
== END ==
LOC: M RAD 12:15
PROVIDERS: ATTEND Specialist
DX: C83.30 Diffuse large B-cell lymphoma, unspecified site (principal); K57.90 Diverticulosis of intestine, part unspecified, without perforation or abscess without bleeding
CPT/HCPCS: 71260; 74177; J1642; Q9963; Q9967

== ENCOUNTER → 2021-04-21 | Outpatient (POV) | payer MEDICARE ==
[~2021-04-21] VITALS: Ht 167.6 cm; Wt 120.4 kg
[~2021-04-21] MED LIST changes: -GASTROGRAFIN SOLUTION 30ML (Q9963) As Ordered ONE; -ISOVUE-370 76% 100ML VIAL As Ordered ONE
[2021-04-21 10:00] VITALS: BP 143/71
--- NOTE | 2021-04-22 13:36 | IRCOV ---
[facility] IR Consult Office Visit IR Consult Office Visit DATE: Apr 21, 2021 REASON FOR CONSULTATION/CHIEF COMPLAINT: Port removal. HISTORY OF PRESENT ILLNESS: 65-year-old female with history of lymphoma, status post port placement by Dr. Marrero in 2019. Patient states her last chemotherapy was in June 2019. No further chemotherapy planned. She does get her port flushed regularly. She states it worked. No pain or swelling. She's now completed her treatment and she would like her port removed. ALLERGIES: Please see below. HOME MEDICATIONS: Please see below. PAST MEDICAL HISTORY: Pulmonary hypertension Arthritis PAST SURGICAL HISTORY: Right shoulder surgery FAMILY HISTORY: Noncontributory. SOCIAL HISTORY: Ex-smoker. Quit 15 years ago. REVIEW OF SYSTEMS: Otherwise negative. PHYSICAL EXAMINATION: VITAL SIGNS: Please see below. GENERAL APPEARANCE: Appears well. Comfortable at rest. HEENT: No scleral icterus. RESPIRATORY: Normal breathing at rest. CARDIOVASCULAR: Normal rate. Right chest port without overlying cellulitis. ABDOMEN: Non-distended. EXTREMITIES: Moving all 4 extremities. NEUROLOGICAL: Alert and oriented. PSYCHIATRIC: Appropriate to circumstance. LABORATORY DATA: 02/26/2021 hemoglobin 13.8 hematocrit 42.4 WBC 9.5 platelets 187 sodium 137 potassium 4.0 BUN 18 creatinine 0.72 Imaging: I personally reviewed the fluoroscopic images from 04/30/2019. A right IJ port was placed. ASSESSMENT/PLAN: 65-year-old Female with history of lymphoma, with a right chest port placed by Dr. Marrero in 2019. Her treatment is complete and she would like her port removed. We discussed the risks and benefits of the procedure and patient agreed to proceed. We'll schedule the patient for port removal. I spent 30 minutes reviewing patient's records, imaging and in consultation with the patient. Thank you for this referral. Cc Dr. Pedersen Allergies Coded Allergies: Sulfa (Sulfonamide Antibiotics) (Verified Adverse Reaction, Intermediate, ITCHING, 03/16/19) Home Medications Scheduled Duloxetine Hcl (Duloxetine HCl), 60 MG PO QHS, (Reported) Levocetirizine Dihydrochloride (Levocetirizine Dihydrochloride), 5 MG PO QPM, (Reported) Lidocaine/Prilocaine (Lidocaine-Prilocaine Cream), 1 DOSE TOP ASDIRECTED Omeprazole (Omeprazole), 40 MG PO DAILY, (Reported) Scheduled PRN Albuterol Sulfate (Albuterol Sulfate), 1 INHALATION INH Q4H PRN for SHORTNESS OF BREATH, (Reported) Hydrocodone/Acetaminophen (Hydrocodone-Acetamin 5-325 mg), 1-2 TAB PO Q8H PRN for PAIN, (Reported) Ondansetron HCl (Ondansetron HCl), 8 MG PO Q8H PRN for NAUSEA OR VOMITING Prochlorperazine Maleate (Prochlorperazine Maleate), 10 MG PO Q8H PRN for NAUSEA OR VOMITING VS, I&O, 24H, Fishbone Vital Signs/I&O Vital Signs Date Time Temp Pulse Resp B/P (MAP) Pulse Ox O2 Delivery O2 Flow Rate FiO2 04/21/21 10:00 97.9 98 20 143/71 (95) 96 Room Air STANLEY MCMILLAN MD Apr 22, 2021 13:36
== END ==
LOC: M IRPOV 09:55
PROVIDERS: ATTEND Radiology Diagnostic Radiology
DX: Z45.2 Encounter for adjustment and management of vascular access device (principal); I27.20 Pulmonary hypertension, unspecified; M12.9 Arthropathy, unspecified; Z79.890 Hormone replacement therapy; Z79.899 Other long term (current) drug therapy; Z85.72 Personal history of non-Hodgkin lymphomas; Z87.891 Personal history of nicotine dependence; Z92.21 Personal history of antineoplastic chemotherapy

== ENCOUNTER → 2021-05-04 | Outpatient (CLI) | payer MEDICARE ==
[~2021-05-04] MED LIST changes: +LIDOCAINE 1% MDV 20ML VIAL As Ordered ONE; +MIDAZOLAM INJ 2MG/2ML VIAL (J2250 PER 1MG) As Ordered ONE; +NS 1,000 ML IV SCH; +ceFAZolin 2 GM/D5W 50 ML IV BAG (J0690 PER 500MG) As Ordered ONE; +ceFAZolin SOD 2 GM in IV 1 EA IV ONE; +diphenhydrAMINE 50MG/ML VIAL (J1200) As Ordered ONE; +fentaNYL 100 MCG/2 ML INJECTION (J3010) As Ordered ONE
--- NOTE | 2021-05-04 13:37 | IRHP ---
[facility] IR Pre-Procedure H & P General Date of Service: May 04, 2021 Procedure: Same Day Surgery Interval History and Physical I have seen the patient and reviewed last H & P performed within 30 days. There is no significant interval change. History of Present Illness Chief Complaint The patient is a 65-year-old female admitted with a reason for visit of B-Cell Lymphoma. PRE-PROCEDURE DIAGNOSIS: Lymphoma. treatment complete HEART: normal rate. LUNGS: normal breathing at rest. ASA Classification ASA Classification: III-Severe systemic dis. Mallampati Score: II NPO: Yes Problems with prior sedation: No Obstructive Sleep Apnea: No Plan moderate sedation Allergies Coded Allergies: Sulfa (Sulfonamide Antibiotics) (Verified Adverse Reaction, Intermediate, ITCHING, 03/16/19) Home Medications Scheduled Duloxetine Hcl (Duloxetine HCl), 60 MG PO QHS, (Reported) Levocetirizine Dihydrochloride (Levocetirizine Dihydrochloride), 5 MG PO QPM, (Reported) Lidocaine/Prilocaine (Lidocaine-Prilocaine Cream), 1 DOSE TOP ASDIRECTED Omeprazole (Omeprazole), 40 MG PO DAILY, (Reported) Scheduled PRN Albuterol Sulfate (Albuterol Sulfate), 1 INHALATION INH Q4H PRN for SHORTNESS OF BREATH, (Reported) Hydrocodone/Acetaminophen (Hydrocodone-Acetamin 5-325 mg), 1-2 TAB PO Q8H PRN for PAIN, (Reported) Ondansetron HCl (Ondansetron HCl), 8 MG PO Q8H PRN for NAUSEA OR VOMITING Discontinued Medications Prochlorperazine Maleate (Prochlorperazine Maleate), 10 MG PO Q8H PRN for NAUSEA OR VOMITING Discontinued Reason: Pt states not taking VS, I&O, 24H, Fishbone Vital Signs/I&O Vital Signs Date Time Temp Pulse Resp B/P (MAP) Pulse Ox O2 Delivery O2 Flow Rate FiO2 05/04/21 12:35 98.8 82 16 99 Room Air STANLEY MCMILLAN MD May 04, 2021 13:37
[2021-05-04 16:00] VITALS: BP 132/69
--- NOTE | 2021-05-05 10:20 | IRPON ---
IR Postoperative Note Date Of Procedure: May 04, 2021 Time Of Procedure: 16:00 IR Postoperative Note IR Port Removal / Explant. IR Moderate sedation. Clinical Information:Lymphoma. Treatment complete. Patient would like her port removed. Physician: Dr. Ventura Procedure: The patient was advised of the benefits, risks, and alternatives of the procedure and informed consent was obtained. A time out was performed with verification of the patient's name, MRN, site of procedure, and type of procedure to be performed. The patient was positioned in the supine position on the angiographic table. The site was prepped and draped in the usual sterile fashion. Moderate sedation was performed by the physician including the presence of an independent trained RN who assisted in monitoring the patient's level of consciousness and physiological status. Following the administration of fentanyl and Versed the physician spent 30 minutes of continuous [id number] time with the patient. A seed mill superintendent radiograph reveals a right sided port. The soft tissues overlying the port were anesthetized with lidocaine. An incision was made over the port using a 15 blade scalpel in the location of the prior incision. The catheter was then freed with blunt dissection and extracted. Pressure was applied to obtain hemostasis. The port was then freed with blunt dissection and subsequently removed. There were no signs of infection. After hemostasis was achieved, the incision was closed with interrupted deep 3-0 Vicryl sutures and subcuticular Monocryl suture followed by glue and steri-strips. The site was covered with a sterile dressing. The patient tolerated the procedure well and was returned to the PRU in stable condition. EBL:Less than 5 mL Complications:None. Conclusions: 1. Successful explant of a right-sided port. 2. No signs of infection. Thank you for this referral STANLEY VENTURA MD May 05, 2021 10:20
== END ==
LOC: M IRPRO 12:25
PROVIDERS: ATTEND Radiology Diagnostic Radiology
DX: C85.10 Unspecified B-cell lymphoma, unspecified site (principal); Z79.899 Other long term (current) drug therapy; Z88.2 Allergy status to sulfonamides
CPT/HCPCS: 36590; 99152; 99153; J0690; J1200; J1644; J2250; J3010

== ENCOUNTER → 2021-05-19 | Outpatient (POV) | payer MEDICARE ==
[~2021-05-19] VITALS: Ht 170.2 cm; Wt 117.7 kg
[~2021-05-19] MED LIST changes: -LIDOCAINE 1% MDV 20ML VIAL As Ordered ONE; -MIDAZOLAM INJ 2MG/2ML VIAL (J2250 PER 1MG) As Ordered ONE; -NS 1,000 ML IV SCH; -ceFAZolin 2 GM/D5W 50 ML IV BAG (J0690 PER 500MG) As Ordered ONE; -ceFAZolin SOD 2 GM in IV 1 EA IV ONE; -diphenhydrAMINE 50MG/ML VIAL (J1200) As Ordered ONE; -fentaNYL 100 MCG/2 ML INJECTION (J3010) As Ordered ONE
[2021-05-19 10:35] VITALS: BP 165/89
--- NOTE | 2021-05-21 13:12 | IRPN ---
[facility] IR Progress Note IR Progress Note DATE: May 19, 2021 FOLLOW-UP: Port removal site healing well. No pain at site, fevers or chills. ON EXAMINATION: Port removal site appears to be healing well. No redness, discharge or fluctuance. There is skin erythema demarcating the lines around the previously placed Tegaderm. Patient is likely reacting to the adhesive. IMPRESSION: Doing well status post port removal. Port removal site appears to be healing well with no issues. However, she does appear sensitive to adhesive of dressings used previously and/or the chlorhexidine used for skin prep. Recommend no further dressings. Allergies Coded Allergies: Sulfa (Sulfonamide Antibiotics) (Verified Adverse Reaction, Intermediate, ITCHING, 03/16/19) VS,Fishbone, I+O VS, Fishbone, I+O Vital Signs Date Time Temp Pulse Resp B/P (MAP) Pulse Ox O2 Delivery O2 Flow Rate FiO2 05/19/21 10:35 98.1 76 20 165/89 (114) 99 Room Air STANLEY MCMILLAN MD May 21, 2021 13:12
== END ==
LOC: M IRPOV 10:31
PROVIDERS: ATTEND Radiology Diagnostic Radiology
DX: Z45.2 Encounter for adjustment and management of vascular access device (principal)

== ENCOUNTER → 2022-03-29 | Outpatient (CLI) | payer MEDICARE ==
[~2022-03-29] MED LIST changes: +BUSP15TA47; +DICY20TA20; +GASTROGRAFIN SOLUTION 30ML (Q9963) As Ordered ONE; +ISOVUE-370 76% 100ML VIAL As Ordered ONE; -KLOR20TA42 PO; -OMEP-221 PO; +OMEP40CA5 PO; +ONDA-84 PO; -ONDA8TAB10 PO; +POTA-141 PO; -PROC10TA4 PO; +PROC10TA5 PO
== END ==
LOC: M RAD 09:15
PROVIDERS: ATTEND Specialist
DX: C83.30 Diffuse large B-cell lymphoma, unspecified site (principal); J43.2 Centrilobular emphysema; M50.30 Other cervical disc degeneration, unspecified cervical region
CPT/HCPCS: 70491; 71260; 74177; Q9963; Q9967

== ENCOUNTER → 2022-05-13 | Outpatient (CLI) | payer MEDICARE ==
[~2022-05-13] MED LIST changes: -GASTROGRAFIN SOLUTION 30ML (Q9963) As Ordered ONE; -ISOVUE-370 76% 100ML VIAL As Ordered ONE; +PANT40TA29
== END ==
LOC: M CARPUL 10:29
PROVIDERS: ATTEND Specialist
DX: I42.7 Cardiomyopathy due to drug and external agent (principal); Z79.899 Other long term (current) drug therapy; I08.0 Rheumatic disorders of both mitral and aortic valves

== ENCOUNTER → 2022-06-25 | Outpatient (CLI) | payer MEDICARE | LOC: M SOG 08:10 | PROVIDERS: ATTEND Orthopaedic Surgery Adult Reconstructive Orthopaedic Surgery | DX: M25.561 Pain in right knee (principal); M25.562 Pain in left knee; M17.0 Bilateral primary osteoarthritis of knee ==

== ENCOUNTER → 2022-07-29 | Outpatient (REF) | payer MEDICARE, OTHER ==
[2022-07-29 12:57] LABS: BASO % 0.5 % (0.0-1.0); EOS # 0.2 10^3/uL (0.0-0.5); EOS % 2.7 % (0.0-3.0); HEMATOCRIT 41.7 % (36.0-47.0); HEMOGLOBIN 13.2 g/dl (12.0-15.5); LYMPH # 2.5 10^3/uL (1.5-5.0); LYMPH % 28.8 % (24.0-44.0); MEAN CORPUSCULAR HGB CONC 31.7 g/dl (32.0-36.5); MEAN CORPUSCULAR VOLUME 88.3 fl (80.0-96.0); MONO # 0.5 10^3/uL (0.0-0.8); MONO % 5.7 % (2.0-8.0); NEUTROPHILS # 5.5 10^3/uL (1.5-8.5); PLATELET COUNT, AUTOMATED 195 10^3/uL (150-450); RED BLOOD COUNT 4.72 10^6/uL (4.00-5.40); WHITE BLOOD COUNT 8.8 10^3/uL (4.0-10.0)
[2022-07-29 13:39] LABS: ERYTHROCYTE SEDIMENTATION RATE 42 mm/hr (0-30)
[2022-07-29 13:46] LABS: ALBUMIN 3.6 GM/DL (3.2-5.2); ALT/SGPT 22 U/L (12-78); BILIRUBIN,TOTAL 0.3 MG/DL (0.2-1.0); BLOOD UREA NITROGEN 16 MG/DL (7-18); C REACTIVE PROTEIN QUANTITATIV 1.14 MG/DL (0.00-0.30); CARBON DIOXIDE LEVEL 29 MEQ/L (21-32); CHLORIDE LEVEL 104 MEQ/L (98-107); CHOLESTEROL LEVEL 174 MG/DL (<200); CREATININE FOR GFR 0.77 MG/DL (0.55-1.30); FREE T4 1.27 NG/DL (0.76-1.46); GLOMERULAR FILTRATION RATE > 60.0 (>45); GLUCOSE, FASTING 104 MG/DL (70-100); HDL CHOLESTEROL 50 MG/DL (>40); LDL CHOLESTEROL 84 MG/DL (<100); NON-HDL-C 124 MG/DL; POTASSIUM SERUM 4.2 MEQ/L (3.5-5.1); RHEUMATOID FACTOR QUANT < 10.0 IU/ML (<15.0); SODIUM LEVEL 138 MEQ/L (136-145); THYROID STIMULATING HORMONE 0.632 uIU/ML (0.358-3.740); TOTAL PROTEIN 7.2 GM/DL (6.4-8.2); TRIGLYCERIDES LEVEL 200 MG/DL (<150)
[2022-07-29 14:22] LABS: TOTAL 25(OH) VITAMIN D 28.8 NG/ML (30.0-100.0)
[2022-07-30 23:11] LABS: ANA (HEP2) Positive (.)
== END ==
LOC: M SFHCADAM 11:02
PROVIDERS: ATTEND Physician Assistant Medical
DX: E78.2 Mixed hyperlipidemia (principal); F32.9 Major depressive disorder, single episode, unspecified; C85.11 Unspecified B-cell lymphoma, lymph nodes of head, face, and neck; M17.0 Bilateral primary osteoarthritis of knee; M54.50 Low back pain, unspecified

== ENCOUNTER → 2022-07-29 | Outpatient (CLI) | payer MEDICARE, OTHER | LOC: M ADAMS 11:09 | PROVIDERS: ATTEND Physician Assistant Medical | DX: M47.816 Spondylosis without myelopathy or radiculopathy, lumbar region (principal); M12.88 Other specific arthropathies, not elsewhere classified, other specified site; M54.50 Low back pain, unspecified ==

== ENCOUNTER → 2022-08-05 | Outpatient (REF) | payer MEDICARE, OTHER ==
[2022-08-10 10:41] LABS: DRVV SCREEN 46.6 SEC
[2022-08-10 10:47] LABS: PTT LUPUS TYPE ANTICOAG SCREEN 1.2 (0-1.2)
[2022-08-10 10:55] LABS: DRVV CONFIRM 38.7 SEC
[2022-08-10 11:00] LABS: NORMALIZED RATIO 1.2 (0.00-1.20)
[2022-08-12 03:07] LABS: ANTI DS-DNA AB Negative (Negative); CYCLIC CITRULLINATED PEPTIDE 4 units (0-19); HLA-B27 Negative (.)
[2022-08-12 16:08] LABS: HEXAGONAL PHASE PHOSPHOLIPID 3 sec (0-11)
== END ==
LOC: M SFHCADAM 08:25
PROVIDERS: ATTEND Physician Assistant Medical
DX: G89.29 Other chronic pain (principal); Z79.51 Long term (current) use of inhaled steroids; Z79.899 Other long term (current) drug therapy

== ENCOUNTER → 2022-08-05 | Outpatient (CLI) | payer MEDICARE | LOC: M CARPUL 09:43 | PROVIDERS: ATTEND Nurse Practitioner Adult Health | DX: J44.9 Chronic obstructive pulmonary disease, unspecified (principal) ==

== ENCOUNTER 2023-02-08 08:04 | Day surgery (SDC) | payer MEDICARE ==
[~2023-02-08] VITALS: Ht 167.6 cm; Wt 127.9 kg
[~2023-02-08 08:04] MED LIST changes: +ALBU6.7H6 INH; -BUSP15TA47; +BUSP15TA47 PO; +CEFUROXIME 1MG/0.1ML INTRACAMERAL INJ As Ordered ONE; +CYCLOPENTOLATE 1% OPHTH SOLN 2ML BTL OS SCH; -DICY20TA20; +DICY20TA20 PO; +LIDOCAINE 1% SDV 5ML VIAL As Ordered ONE; +OFLOXACIN 0.3 % (OCUFLOX) OPTH SOL 5ML OS SCH; -PANT40TA29; +PANT40TA29 PO; +PHENYLEPHRINE 2.5% OPHTH SOL 2ML OS SCH; +PROPARACAINE 0.5% OPHTH SOL 15ML OS ONE; +TROPICAMIDE 1% OPHTH SOLN 15ML OS SCH
[2023-02-08] MEDS ORDERED: fentaNYL 100 MCG/2 ML INJECTION As Ordered ONE (10:11)
[2023-02-08] MEDS ORDERED: MIDAZOLAM INJ 2MG/2ML VIAL As Ordered ONE (10:11)
[2023-02-08 10:32] VITALS: BP 128/70
== END 2023-02-08 10:53 | disposition home or self-care (01) ==
LOC: M SDC 08:04
PROVIDERS: ATTEND Ophthalmology
DX: H25.12 Age-related nuclear cataract, left eye (principal); J44.9 Chronic obstructive pulmonary disease, unspecified; Z79.51 Long term (current) use of inhaled steroids; Z79.899 Other long term (current) drug therapy; Z87.891 Personal history of nicotine dependence; Z92.21 Personal history of antineoplastic chemotherapy; F41.9 Anxiety disorder, unspecified; F32.A Depression, unspecified; Z88.2 Allergy status to sulfonamides
CPT/HCPCS: 66984; J0697; J2250; J3010; V2632

== ENCOUNTER → 2023-02-28 | Outpatient (CLI) | payer MEDICARE ==
[~2023-02-28] MED LIST changes: -CEFUROXIME 1MG/0.1ML INTRACAMERAL INJ As Ordered ONE; -CYCLOPENTOLATE 1% OPHTH SOLN 2ML BTL OS SCH; -LIDOCAINE 1% SDV 5ML VIAL As Ordered ONE; -OFLOXACIN 0.3 % (OCUFLOX) OPTH SOL 5ML OS SCH; -PHENYLEPHRINE 2.5% OPHTH SOL 2ML OS SCH; -PROPARACAINE 0.5% OPHTH SOL 15ML OS ONE; -TROPICAMIDE 1% OPHTH SOLN 15ML OS SCH
== END ==
LOC: M SOG 11:24
PROVIDERS: ATTEND Orthopaedic Surgery
DX: M25.562 Pain in left knee (principal); M25.561 Pain in right knee; M17.0 Bilateral primary osteoarthritis of knee

== ENCOUNTER 2023-03-15 08:44 | Day surgery (SDC) | payer MEDICARE ==
[~2023-03-15] VITALS: Ht 167.6 cm; Wt 129.5 kg
[~2023-03-15 08:44] MED LIST changes: +CEFUROXIME 1MG/0.1ML INTRACAMERAL INJ As Ordered ONE; +CYCLOPENTOLATE 1% OPHTH SOLN 2ML BTL OD SCH; +LIDOCAINE 1% SDV 5ML VIAL As Ordered ONE; +MIDAZOLAM INJ 2MG/2ML VIAL As Ordered ONE; +OFLOXACIN 0.3 % (OCUFLOX) OPTH SOL 5ML OD SCH; +PHENYLEPHRINE 2.5% OPHTH SOL 2ML OD SCH; +PROPARACAINE 0.5% OPHTH SOL 15ML OD ONE; +TROPICAMIDE 1% OPHTH SOLN 15ML OD SCH; +fentaNYL 100 MCG/2 ML INJECTION As Ordered ONE
[2023-03-15] MEDS ORDERED: BSS IRR 500ML/OMIDRIA 4ML IRR BAG (OR ONLY) As Ordered ONE (10:49)
[2023-03-15 11:31] VITALS: BP 165/76
== END 2023-03-15 11:48 | disposition home or self-care (01) ==
LOC: M SDC 08:44
PROVIDERS: ATTEND Ophthalmology
DX: H25.11 Age-related nuclear cataract, right eye (principal); J44.9 Chronic obstructive pulmonary disease, unspecified; K21.9 Gastro-esophageal reflux disease without esophagitis; E66.9 Obesity, unspecified; Z88.2 Allergy status to sulfonamides; Z92.21 Personal history of antineoplastic chemotherapy; Z85.72 Personal history of non-Hodgkin lymphomas; Z79.899 Other long term (current) drug therapy; Z79.51 Long term (current) use of inhaled steroids
CPT/HCPCS: 66984; J0697; J1097; J2250; J3010; V2632

== ENCOUNTER → 2023-04-20 | Outpatient (REF) | payer MEDICARE ==
[~2023-04-20] MED LIST changes: -CEFUROXIME 1MG/0.1ML INTRACAMERAL INJ As Ordered ONE; -CYCLOPENTOLATE 1% OPHTH SOLN 2ML BTL OD SCH; -LIDOCAINE 1% SDV 5ML VIAL As Ordered ONE; -MIDAZOLAM INJ 2MG/2ML VIAL As Ordered ONE; -OFLOXACIN 0.3 % (OCUFLOX) OPTH SOL 5ML OD SCH; -PHENYLEPHRINE 2.5% OPHTH SOL 2ML OD SCH; -PROPARACAINE 0.5% OPHTH SOL 15ML OD ONE; -TROPICAMIDE 1% OPHTH SOLN 15ML OD SCH; -fentaNYL 100 MCG/2 ML INJECTION As Ordered ONE
[2023-04-20 14:55] LABS: HEMOGLOBIN A1c 5.8 % (4.0-6.0)
== END ==
LOC: M SFHCADAM 11:08
PROVIDERS: ATTEND Physician Assistant Medical
DX: R73.01 Impaired fasting glucose (principal)

== ENCOUNTER → 2023-06-08 | Outpatient (REF) | payer MEDICARE ==
[~2023-06-08] MED LIST changes: -LIDO1CRE42 TOP; +LIDO30CR18 TOP
[2023-06-08 17:35] LABS: BASO # 0.1 10^3/uL (0.0-0.2); BASO % 0.6 % (0.0-1.0); EOS # 0.3 10^3/uL (0.0-0.5); EOS % 2.4 % (0.0-3.0); HEMATOCRIT 42.9 % (36.0-47.0); HEMOGLOBIN 13.9 g/dl (12.0-15.5); LYMPH # 3.9 10^3/uL (1.5-5.0); LYMPH % 37.2 % (24.0-44.0); MEAN CORPUSCULAR HEMOGLOBIN 29.3 pg (27.0-33.0); MEAN CORPUSCULAR HGB CONC 32.4 g/dl (32.0-36.5); MEAN CORPUSCULAR VOLUME 90.3 fl (80.0-96.0); MONO # 0.8 10^3/uL (0.0-0.8); MONO % 7.2 % (2.0-8.0); NEUTROPHILS # 5.5 10^3/uL (1.5-8.5); NEUTROPHILS % 52.2 % (36.0-66.0); PLATELET COUNT, AUTOMATED 207 10^3/uL (150-450); RED BLOOD COUNT 4.75 10^6/uL (4.00-5.40); WHITE BLOOD COUNT 10.6 10^3/uL (4.0-10.0)
[2023-06-08 18:04] LABS: ALBUMIN 3.6 G/DL (3.2-5.2); ALKALINE PHOSPHATASE 55 U/L (46-116); ALT/SGPT 11 U/L (7.0-40); AST/SGOT < 8 U/L (<34); BILIRUBIN,TOTAL 0.3 MG/DL (0.3-1.2); BLOOD UREA NITROGEN 18 MG/DL (9-23); CALCIUM LEVEL 9.2 MG/DL (8.3-10.6); CARBON DIOXIDE LEVEL 29 MMOL/L (20-31); CHLORIDE LEVEL 103 MMOL/L (98-107); CREATININE FOR GFR 1.05 MG/DL (0.55-1.30); GLOMERULAR FILTRATION RATE 55.7 (>45); GLUCOSE, FASTING 81 MG/DL (74-106); POTASSIUM SERUM 4.3 MMOL/L (3.5-5.1); SODIUM LEVEL 140 MMOL/L (136-145); TOTAL PROTEIN 6.7 G/DL (5.7-8.2)
== END ==
LOC: M SFHCADAM 15:38
PROVIDERS: ATTEND Physician Assistant Medical
DX: R53.82 Chronic fatigue, unspecified (principal); R11.0 Nausea

== ENCOUNTER → 2023-08-09 | Outpatient (REF) | payer MEDICARE ==
[2023-08-09 14:18] LABS: IRON (FE) 70 UG/DL (50-170); PERCENT SATURATION 21.4 % (13.2-45.0); TOTAL IRON BINDING CAPACITY 327 UG/DL (250-425)
[2023-08-09 14:25] LABS: ALBUMIN 3.6 G/DL (3.2-5.2); ALKALINE PHOSPHATASE 53 U/L (46-116); ALT/SGPT 13 U/L (7.0-40); AST/SGOT 10 U/L (<34); BILIRUBIN,TOTAL 0.3 MG/DL (0.3-1.2); BLOOD UREA NITROGEN 12 MG/DL (9-23); CALCIUM LEVEL 9.2 MG/DL (8.3-10.6); CARBON DIOXIDE LEVEL 33 MMOL/L (20-31); CHLORIDE LEVEL 101 MMOL/L (98-107); CHOLESTEROL LEVEL 164 MG/DL (<200); CHOLESTEROL RISK RATIO 3.36 (<5); CREATININE FOR GFR 0.79 MG/DL (0.55-1.30); FERRITIN 22.5 NG/ML (7.3-270.7); GLOMERULAR FILTRATION RATE > 60.0 (>45); GLUCOSE, FASTING 100 MG/DL (74-106); HDL CHOLESTEROL 48.8 MG/DL (>40); LDL CHOLESTEROL 71.8 MG/DL (<100); NON-HDL-C 115.2 MG/DL; POTASSIUM SERUM 4.5 MMOL/L (3.5-5.1); SODIUM LEVEL 137 MMOL/L (136-145); THYROID STIMULATING HORMONE 0.571 uIU/ML (0.55-4.78); TOTAL PROTEIN 6.9 G/DL (5.7-8.2); TRIGLYCERIDES LEVEL 217 MG/DL (<150)
== END ==
LOC: M SFHCADAM 10:26
PROVIDERS: ATTEND Physician Assistant Medical
DX: R73.01 Impaired fasting glucose (principal); R53.82 Chronic fatigue, unspecified; Z79.899 Other long term (current) drug therapy

== ENCOUNTER → 2024-01-12 | Outpatient (REF) | payer MEDICARE ==
[2024-01-12 14:59] LABS: BASO # 0.1 10^3/uL (0.0-0.2); BASO % 0.7 % (0.0-1.0); EOS # 0.1 10^3/uL (0.0-0.5); EOS % 1.6 % (0.0-3.0); HEMATOCRIT 43.5 % (36.0-47.0); HEMOGLOBIN 14.3 g/dl (12.0-15.5); LYMPH # 3.1 10^3/uL (1.5-5.0); LYMPH % 34.8 % (24.0-44.0); MEAN CORPUSCULAR HEMOGLOBIN 29.9 pg (27.0-33.0); MEAN CORPUSCULAR HGB CONC 32.9 g/dl (32.0-36.5); MEAN CORPUSCULAR VOLUME 90.8 fl (80.0-96.0); MONO # 0.4 10^3/uL (0.0-0.8); MONO % 4.5 % (2.0-8.0); NEUTROPHILS # 5.2 10^3/uL (1.5-8.5); NEUTROPHILS % 58.1 % (36.0-66.0); PLATELET COUNT, AUTOMATED 212 10^3/uL (150-450); RED BLOOD COUNT 4.79 10^6/uL (4.00-5.40); WHITE BLOOD COUNT 8.9 10^3/uL (4.0-10.0)
[2024-01-12 15:12] LABS: INR 0.96; PROTHROMBIN TIME 12.5 SECONDS (12.5-14.5)
[2024-01-12 15:18] LABS: HEMOGLOBIN A1c 5.4 % (4.0-6.0)
[2024-01-12 15:25] LABS: ALBUMIN 3.6 G/DL (3.2-5.2); ALKALINE PHOSPHATASE 54 U/L (46-116); ALT/SGPT 27 U/L (7.0-40); AST/SGOT 10 U/L (<34); BILIRUBIN,TOTAL 0.3 MG/DL (0.3-1.2); BLOOD UREA NITROGEN 19 MG/DL (9-23); CALCIUM LEVEL 9.3 MG/DL (8.3-10.6); CARBON DIOXIDE LEVEL 31 MMOL/L (20-31); CHLORIDE LEVEL 101 MMOL/L (98-107); CREATININE FOR GFR 0.79 MG/DL (0.55-1.30); GLOMERULAR FILTRATION RATE > 60.0 (>45); GLUCOSE, FASTING 100 MG/DL (74-106); POTASSIUM SERUM 3.9 MMOL/L (3.5-5.1); SODIUM LEVEL 136 MMOL/L (136-145); TOTAL PROTEIN 6.9 G/DL (5.7-8.2)
[2024-01-12 15:28] LABS: TOTAL 25(OH) VITAMIN D 57.1 NG/ML (20.0-100.0)
== END ==
LOC: M LABDRWAD 14:44
PROVIDERS: ATTEND Orthopaedic Surgery
DX: M17.0 Bilateral primary osteoarthritis of knee (principal); I50.32 Chronic diastolic (congestive) heart failure; R73.01 Impaired fasting glucose; Z79.899 Other long term (current) drug therapy

== ENCOUNTER → 2024-01-12 | Outpatient (CLI) | payer MEDICARE | LOC: M SOG 10:56 | PROVIDERS: ATTEND Orthopaedic Surgery | DX: M17.0 Bilateral primary osteoarthritis of knee (principal) ==

== ENCOUNTER → 2024-01-19 | Outpatient (CLI) | payer MEDICARE ==
[~2024-01-19] MED LIST changes: +PHEN10TA3 PO; +TRUL0.5I SC
== END ==
LOC: M PLAIMG 09:44
PROVIDERS: ATTEND Orthopaedic Surgery
DX: M17.0 Bilateral primary osteoarthritis of knee (principal)

== ENCOUNTER → 2024-01-23 | Outpatient (REF) | payer MEDICARE ==
[2024-01-23 18:29] LABS: BASO # 0.1 10^3/uL (0.0-0.2); BASO % 0.5 % (0.0-1.0); EOS # 0.2 10^3/uL (0.0-0.5); EOS % 2.1 % (0.0-3.0); HEMATOCRIT 43.7 % (36.0-47.0); HEMOGLOBIN 13.9 g/dl (12.0-15.5); LYMPH # 3.3 10^3/uL (1.5-5.0); LYMPH % 33.3 % (24.0-44.0); MEAN CORPUSCULAR HEMOGLOBIN 29.4 pg (27.0-33.0); MEAN CORPUSCULAR HGB CONC 31.8 g/dl (32.0-36.5); MEAN CORPUSCULAR VOLUME 92.4 fl (80.0-96.0); MONO # 0.5 10^3/uL (0.0-0.8); MONO % 5.4 % (2.0-8.0); NEUTROPHILS # 5.9 10^3/uL (1.5-8.5); NEUTROPHILS % 58.3 % (36.0-66.0); PLATELET COUNT, AUTOMATED 206 10^3/uL (150-450); RED BLOOD COUNT 4.73 10^6/uL (4.00-5.40)
[2024-01-23 18:46] LABS: ALBUMIN 3.7 G/DL (3.2-5.2); ALKALINE PHOSPHATASE 54 U/L (46-116); ALT/SGPT 12 U/L (7.0-40); AST/SGOT < 8 U/L (<34); BILIRUBIN,TOTAL 0.3 MG/DL (0.3-1.2); BLOOD UREA NITROGEN 19 MG/DL (9-23); CALCIUM LEVEL 8.9 MG/DL (8.3-10.6); CARBON DIOXIDE LEVEL 30 MMOL/L (20-31); CHLORIDE LEVEL 103 MMOL/L (98-107); CREATININE FOR GFR 0.73 MG/DL (0.55-1.30); GLOMERULAR FILTRATION RATE > 60.0 (>45); GLUCOSE, FASTING 87 MG/DL (74-106); POTASSIUM SERUM 4.1 MMOL/L (3.5-5.1); SODIUM LEVEL 141 MMOL/L (136-145); TOTAL PROTEIN 6.7 G/DL (5.7-8.2)
== END ==
LOC: M LABDRWAD 17:05
PROVIDERS: ATTEND Specialist
DX: C83.30 Diffuse large B-cell lymphoma, unspecified site (principal)

== ENCOUNTER → 2024-02-03 | Outpatient (CLI) | payer MEDICARE | LOC: M RAD 14:21 | PROVIDERS: ATTEND Orthopaedic Surgery | DX: M17.12 Unilateral primary osteoarthritis, left knee (principal) ==

== ENCOUNTER 2024-02-06 06:02 | Observation (INO) | payer MEDICARE ==
[~2024-02-06] VITALS: Ht 167.6 cm; Wt 127.0 kg
[2024-02-06] VITALS (7 sets, daily range): BP systolic 109–139; BP diastolic 43–96; TEMP 97.3–98.1; O2SAT 90–95
[2024-02-06] MEDS ORDERED: ONDANSETRON 4MG 2ML VIAL As Ordered ONE (06:52)
[2024-02-06] MEDS ORDERED: KETOROLAC 60MG 2ML VIAL As Ordered ONE (06:52)
[2024-02-06] MEDS ORDERED: SUGAMMADEX SODIUM 500 MG/5 ML VIAL (BRIDION) As Ordered ONE (06:52)
[2024-02-06] MEDS ORDERED: propofoL 200 MG/20 ML VIAL As Ordered ONE (06:52)
[2024-02-06] MEDS ORDERED: LIDOCAINE 2% 100MG/5ML SDV (FOR ANES.) As Ordered ONE (06:53)
[2024-02-06] MEDS ORDERED: ROCURONIUM BROMIDE 50MG/5ML VIAL As Ordered ONE (06:53)
[2024-02-06] MEDS ORDERED: fentaNYL 100 MCG/2 ML INJECTION As Ordered ONE (06:53)
[2024-02-06] MEDS ORDERED: HYDROmorphone HCL 2MG/ML 1ML VIAL As Ordered ONE (06:58)
[2024-02-06] MEDS ORDERED: LR 1,000 ML IV SCH ×2 (07:00→10:30)
[2024-02-06] MEDS: MIDAZOLAM INJ 2MG/2ML VIAL IV PRN (07:37)
[2024-02-06] MEDS: fentaNYL 100 MCG/2 ML INJECTION IV PRN ×2 (07:37→11:25)
[2024-02-06] MEDS: EPINEPHrine INJ 1 MG/ML 1ML AMP PN STA (08:00)
[2024-02-06] MEDS: ROPIvacaine 0.5% 30ML VIAL PN ONE (08:00)
[2024-02-06] MEDS: LIDOCAINE 1% SDV 5ML VIAL PN ONE (08:00)
[2024-02-06] MEDS: dexAMETHasone 10MG/1ML VIAL PRES.FREE PN ONE (08:00)
[2024-02-06] MEDS ORDERED: MUPI2OI NARES (08:09)
[2024-02-06] MEDS ORDERED: ALBU8.5H INH (08:09)
[2024-02-06] MEDS ORDERED: HOME MED LIST COMPLETE! XX SCH (08:15)
[2024-02-06] MEDS: ceFAZolin SOD 2 GM in IV 1 EA IV ONE (08:20)
[2024-02-06] MEDS: ceFAZolin SOD 1 GM in D5W MINI-BAG PLUS 50 ML IV ONE (08:20)
[2024-02-06] MEDS: TRANEXAMIC ACID 100 MG/ML 10ML VIAL IV ONE (08:35)
[2024-02-06] MEDS ORDERED: ACETAMINOPHEN 1000MG 100ML IV BAG As Ordered ONE (08:51)
[2024-02-06] MEDS: ROPIVA 100MG/KETOR 15MG/EPINEPHRINE 0.3MG IN NS 50ML SYRINGE PA ONE (10:05)
[2024-02-06] MEDS ORDERED: ALBUTEROL 90 MCG/ACT 8GM HFA INHALER INH PRN (10:20)
[2024-02-06] MEDS ORDERED: SENNA 8.6 MG TAB (SENOKOT) PO PRN (10:20)
[2024-02-06] MEDS ORDERED: oxyCODONE 5MG TAB PO PRN ×2 (10:20→10:30)
[2024-02-06] MEDS: TRANEXAMIC ACID 100 MG/ML 10ML VIAL As Ordered ONE (10:38)
[2024-02-06] MEDS: HYDROMORPHONE HCL 0.5 MG/ 0.5 ML SYRINGE IV PRN (11:58)
[2024-02-06] MEDS: ONDANSETRON 4MG 2ML VIAL IV PRN ×2 (12:02→21:14)
[2024-02-06] MEDS ORDERED: METOCLOPRAMIDE INJ 10MG/2ML VIAL IV PRN (12:05)
[2024-02-06] MEDS: LR 1,000 ML IV SCH (13:41)
[2024-02-06] MEDS: ASCORBIC ACID 500 MG TAB PO SCH (13:53)
[2024-02-06] MEDS: DOCUSATE SODIUM 100MG CAPSULE PO SCH (13:53)
[2024-02-06] MEDS: FERROUS SULFATE 325MG TAB PO SCH (13:53)
[2024-02-06] MEDS: ACETAMINOPHEN TAB 650MG DOSE (2X325MG) PO SCH (13:53)
[2024-02-06] MEDS: oxyCODONE 5MG TAB PO PRN (17:40)
[2024-02-06] MEDS: ceFAZolin SOD 2 GM in IV 1 EA IV SCH (17:40)
[2024-02-06] MEDS: ASPIRIN 81MG ENTERIC TABLET PO SCH (21:05)
[2024-02-06] MEDS: DULoxetine 30MG CAPSULE (CYMBALTA) PO SCH (21:05)
[2024-02-06] MEDS: busPIRone 5 MG TAB PO SCH (21:05)
[2024-02-07 06:18] VITALS: BP 117/60; TEMP 97.2; O2SAT 90
[2024-02-07 07:06] LABS: HEMATOCRIT 34.4 % (36.0-47.0); HEMOGLOBIN 10.9 g/dl (12.0-15.5); MEAN CORPUSCULAR HEMOGLOBIN 29.1 pg (27.0-33.0); MEAN CORPUSCULAR HGB CONC 31.7 g/dl (32.0-36.5); PLATELET COUNT, AUTOMATED 164 10^3/uL (150-450); RED BLOOD COUNT 3.74 10^6/uL (4.00-5.40); WHITE BLOOD COUNT 13.9 10^3/uL (4.0-10.0)
[2024-02-07] MEDS ORDERED: ASPI81TAEC PO (07:22)
[2024-02-07] MEDS ORDERED: CEFA500C2 PO (07:26)
[2024-02-07 07:43] LABS: ALBUMIN 2.8 G/DL (3.2-5.2); ALKALINE PHOSPHATASE 42 U/L (46-116); ALT/SGPT 15 U/L (7.0-40); AST/SGOT 13 U/L (<34); BILIRUBIN,TOTAL 0.4 MG/DL (0.3-1.2); BLOOD UREA NITROGEN 15 MG/DL (9-23); CALCIUM LEVEL 8.7 MG/DL (8.3-10.6); CARBON DIOXIDE LEVEL 28 MMOL/L (20-31); CHLORIDE LEVEL 106 MMOL/L (98-107); CREATININE FOR GFR 0.68 MG/DL (0.55-1.30); GLOMERULAR FILTRATION RATE > 60.0 (>45); GLUCOSE, FASTING 132 MG/DL (74-106); PHOSPHORUS LEVEL 3.3 MG/DL (2.4-5.1); POTASSIUM SERUM 3.9 MMOL/L (3.5-5.1); SODIUM LEVEL 140 MMOL/L (136-145); TOTAL PROTEIN 5.7 G/DL (5.7-8.2)
[2024-02-07] MEDS: PANTOPRAZOLE 40MG TAB (PROTONIX) PO SCH (08:15)
[2024-02-07] MEDS: NAPROXEN 250 MG TAB PO SCH (11:48)
== END 2024-02-07 12:00 | disposition home health service (06) ==
LOC: M SDC 06:02 → M RR INP 06:03 → M MS5PR 13:25
PROVIDERS: ADMIT Orthopaedic Surgery; ATTEND Orthopaedic Surgery
DX: M17.12 Unilateral primary osteoarthritis, left knee (principal); R06.83 Snoring; Z87.891 Personal history of nicotine dependence; Z88.2 Allergy status to sulfonamides; Z79.899 Other long term (current) drug therapy
CPT/HCPCS: 27447; 36415; 73560; 80053; 80069; 85027; 88300; 96365; 96366; 96375; 97110; 97116; 97161; 97165; 97530; C1776; G0378; J0131; J0171; J0690; J1100; J1170; J1885; J2250; J2405; J2795; J3010; S2900

== ENCOUNTER → 2024-02-20 | Outpatient (CLI) | payer MEDICARE ==
[~2024-02-20] MED LIST changes: +ALBU8.5H INH; +ASPI81TAEC PO; +CEFA500C2 PO; +MUPI2OI NARES
== END ==
LOC: M SOG 10:48
PROVIDERS: ATTEND Orthopaedic Surgery
DX: Z47.1 Aftercare following joint replacement surgery (principal); Z96.652 Presence of left artificial knee joint

== ENCOUNTER → 2024-03-21 | Outpatient (CLI) | payer MEDICARE | LOC: M SOG 07:59 | PROVIDERS: ATTEND Orthopaedic Surgery | DX: Z96.652 Presence of left artificial knee joint (principal); Z47.1 Aftercare following joint replacement surgery ==

== ENCOUNTER → 2024-04-23 | Outpatient (REF) | payer MEDICARE ==
[2024-04-23 13:39] LABS: ALBUMIN 3.5 G/DL (3.2-5.2); ALKALINE PHOSPHATASE 62 U/L (46-116); ALT/SGPT 12 U/L (7.0-40); AST/SGOT < 8 U/L (<34); BILIRUBIN,TOTAL 0.3 MG/DL (0.3-1.2); BLOOD UREA NITROGEN 16 MG/DL (9-23); CALCIUM LEVEL 9.3 MG/DL (8.3-10.6); CARBON DIOXIDE LEVEL 30 MMOL/L (20-31); CHLORIDE LEVEL 105 MMOL/L (98-107); CHOLESTEROL LEVEL 169 MG/DL (<200); CHOLESTEROL RISK RATIO 3.39 (<5); CREATININE FOR GFR 0.72 MG/DL (0.55-1.30); GLOMERULAR FILTRATION RATE > 60.0 (>45); GLUCOSE, FASTING 95 MG/DL (74-106); HDL CHOLESTEROL 49.8 MG/DL (>40); LDL CHOLESTEROL 85.8 MG/DL (<100); NON-HDL-C 119.2 MG/DL; POTASSIUM SERUM 4.7 MMOL/L (3.5-5.1); SODIUM LEVEL 141 MMOL/L (136-145); TOTAL PROTEIN 6.6 G/DL (5.7-8.2); TRIGLYCERIDES LEVEL 167 MG/DL (<150)
[2024-04-23 13:41] LABS: TOTAL 25(OH) VITAMIN D 56.8 NG/ML (20.0-100.0)
[2024-04-23 13:43] LABS: BASO % 0.4 % (0.0-1.0); EOS # 0.4 10^3/uL (0.0-0.5); EOS % 4.5 % (0.0-3.0); HEMATOCRIT 43.3 % (36.0-47.0); HEMOGLOBIN 13.6 g/dl (12.0-15.5); LYMPH % 31.1 % (24.0-44.0); MEAN CORPUSCULAR HEMOGLOBIN 28.3 pg (27.0-33.0); MEAN CORPUSCULAR HGB CONC 31.4 g/dl (32.0-36.5); MEAN CORPUSCULAR VOLUME 90.2 fl (80.0-96.0); MONO # 0.6 10^3/uL (0.0-0.8); MONO % 6.2 % (2.0-8.0); NEUTROPHILS # 5.5 10^3/uL (1.5-8.5); NEUTROPHILS % 57.5 % (36.0-66.0); PLATELET COUNT, AUTOMATED 212 10^3/uL (150-450); WHITE BLOOD COUNT 9.5 10^3/uL (4.0-10.0)
[2024-04-23 14:32] LABS: HEMOGLOBIN A1c 5.4 % (4.0-6.0)
== END ==
LOC: M SFHCADAM 08:22
PROVIDERS: ATTEND Physician Assistant Medical
DX: I50.32 Chronic diastolic (congestive) heart failure (principal); E78.2 Mixed hyperlipidemia; K21.9 Gastro-esophageal reflux disease without esophagitis; C85.11 Unspecified B-cell lymphoma, lymph nodes of head, face, and neck; M17.0 Bilateral primary osteoarthritis of knee; R73.01 Impaired fasting glucose; Z79.899 Other long term (current) drug therapy

== ENCOUNTER → 2024-05-15 | Outpatient (CLI) | payer MEDICARE | LOC: M ADAMS 11:49 | PROVIDERS: ATTEND Physician Assistant Medical | DX: J43.1 Panlobular emphysema (principal) ==

== ENCOUNTER → 2024-08-14 | Outpatient (CLI) | payer MEDICARE | LOC: M SOG 07:23 | PROVIDERS: ATTEND Physician Assistant | DX: Z96.652 Presence of left artificial knee joint (principal); Z47.1 Aftercare following joint replacement surgery ==

== ENCOUNTER → 2024-09-12 | Outpatient (CLI) | payer MEDICARE | LOC: M RAD 10:43 | PROVIDERS: ATTEND Nurse Practitioner Adult Health | DX: J98.6 Disorders of diaphragm (principal); J43.2 Centrilobular emphysema; J98.11 Atelectasis; R91.8 Other nonspecific abnormal finding of lung field; I70.0 Atherosclerosis of aorta; I25.10 Atherosclerotic heart disease of native coronary artery without angina pectoris; R16.0 Hepatomegaly, not elsewhere classified; K44.9 Diaphragmatic hernia without obstruction or gangrene; M47.814 Spondylosis without myelopathy or radiculopathy, thoracic region ==

== ENCOUNTER → 2024-11-28 | Outpatient (REF) | payer MEDICARE ==
[2024-11-28 18:50] LABS: TOTAL 25(OH) VITAMIN D 72.5 NG/ML (20.0-100.0)
[2024-11-28 18:52] LABS: FREE T4 1.45 NG/DL (0.89-1.76)
[2024-11-28 18:55] LABS: ALBUMIN 3.7 G/DL (3.2-5.2); ALKALINE PHOSPHATASE 62 U/L (35-104); ALT/SGPT 13 U/L (7.0-40); AST/SGOT 12 U/L (<34); BILIRUBIN,TOTAL 0.4 MG/DL (0.3-1.2); BLOOD UREA NITROGEN 16 MG/DL (9-23); CALCIUM LEVEL 9.4 MG/DL (8.3-10.6); CARBON DIOXIDE LEVEL 29 MMOL/L (20-31); CHLORIDE LEVEL 102 MMOL/L (98-107); CREATININE FOR GFR 0.71 MG/DL (0.55-1.30); GLOMERULAR FILTRATION RATE > 60.0 (>45); GLUCOSE, FASTING 90 MG/DL (74-106); POTASSIUM SERUM 4.4 MMOL/L (3.5-5.1); SODIUM LEVEL 141 MMOL/L (136-145); TOTAL PROTEIN 7.3 G/DL (5.7-8.2)
[2024-11-28 19:11] LABS: BASO % 0.5 % (0.0-1.0); EOS # 0.2 10^3/uL (0.0-0.5); EOS % 2.1 % (0.0-3.0); HEMATOCRIT 43.8 % (36.0-47.0); LYMPH # 3.1 10^3/uL (1.5-5.0); LYMPH % 35.7 % (24.0-44.0); MEAN CORPUSCULAR HEMOGLOBIN 28.7 pg (27.0-33.0); MEAN CORPUSCULAR VOLUME 89.9 fl (80.0-96.0); MONO # 0.5 10^3/uL (0.0-0.8); MONO % 6.2 % (2.0-8.0); NEUTROPHILS # 4.8 10^3/uL (1.5-8.5); NEUTROPHILS % 55.3 % (36.0-66.0); PLATELET COUNT, AUTOMATED 212 10^3/uL (150-450); RED BLOOD COUNT 4.87 10^6/uL (4.00-5.40); WHITE BLOOD COUNT 8.6 10^3/uL (4.0-10.0)
[2024-11-28 19:54] LABS: HEMOGLOBIN A1c 5.7 % (4.0-6.0)
== END ==
LOC: M SFHCADAM 12:23
PROVIDERS: ATTEND Physician Assistant Medical
DX: E78.2 Mixed hyperlipidemia (principal); F32.9 Major depressive disorder, single episode, unspecified; K21.9 Gastro-esophageal reflux disease without esophagitis; F41.1 Generalized anxiety disorder; C85.11 Unspecified B-cell lymphoma, lymph nodes of head, face, and neck; F41.0 Panic disorder [episodic paroxysmal anxiety]; R73.01 Impaired fasting glucose; E66.01 Morbid (severe) obesity due to excess calories; R53.82 Chronic fatigue, unspecified; J43.1 Panlobular emphysema; F43.9 Reaction to severe stress, unspecified

== ENCOUNTER → 2024-11-28 | Outpatient (CLI) | payer MEDICARE | LOC: M ADAMS 12:24 | PROVIDERS: ATTEND Physician Assistant Medical | DX: E78.2 Mixed hyperlipidemia (principal); M51.369 Other intervertebral disc degeneration, lumbar region without mention of lumbar back pain or lower extremity pain ==

== ENCOUNTER → 2025-01-01 | Outpatient (CLI) | payer MEDICARE ==
[~2025-01-01] MED LIST changes: +VANC125C13 PO; -VANC125C3 PO
== END ==
LOC: M RAD 08:10
PROVIDERS: ATTEND Physician Assistant Medical
DX: R16.0 Hepatomegaly, not elsewhere classified (principal); K80.20 Calculus of gallbladder without cholecystitis without obstruction

== ENCOUNTER → 2025-02-13 | Outpatient (CLI) | payer MEDICARE ==
[~2025-02-13] MED LIST changes: -PRED50TA PO; +PRED50TA57 PO
== END ==
LOC: M PLAIMG 13:09
PROVIDERS: ATTEND Physician Assistant
DX: M47.26 Other spondylosis with radiculopathy, lumbar region (principal)

== ENCOUNTER → 2025-03-14 | Outpatient (CLI) | payer MEDICARE ==
[2025-03-14 18:23] LABS: CREATININE, URINE 93.4 MG/DL; MALB URINE SIEMENS < 3.0 MG/L
== END ==
LOC: M LABDRWAD 13:03
PROVIDERS: ATTEND Physician Assistant Medical
DX: E78.2 Mixed hyperlipidemia (principal); F32.9 Major depressive disorder, single episode, unspecified; K21.9 Gastro-esophageal reflux disease without esophagitis; F41.1 Generalized anxiety disorder; C85.11 Unspecified B-cell lymphoma, lymph nodes of head, face, and neck; R73.01 Impaired fasting glucose

== ENCOUNTER → 2025-07-16 | Outpatient (REF) | payer MEDICARE ==
[~2025-07-16] MED LIST changes: +B-12100021 PO; +BUDE10.7 IH; +COQ1200C3 PO; +CVS1CAP2 PO; +D 1010002 PO; +NEUR300C PO; +ROSU10TA61 PO; +VITA500C24 PO
[2025-07-16 15:08] LABS: BASO # 0.0 10^3/uL (0.0-0.2); BASO % 0.5 % (0.0-1.0); EOS # 0.3 10^3/uL (0.0-0.5); EOS % 3.6 % (0.0-3.0); LYMPH # 2.4 10^3/uL (1.5-5.0); LYMPH % 33.5 % (24.0-44.0); MONO # 0.5 10^3/uL (0.0-0.8); MONO % 6.6 % (2.0-8.0); NEUTROPHILS # 4.1 10^3/uL (1.5-8.5); NEUTROPHILS % 55.7 % (36.0-66.0); PLATELET COUNT, AUTOMATED 202 10^3/uL (150-450)
[2025-07-16 15:19] LABS: ALT/SGPT 26.0 U/L (7.0-40); AST/SGOT 24.0 U/L (<34); CALCIUM LEVEL 8.9 MG/DL (8.3-10.6); CARBON DIOXIDE LEVEL 30.0 MMOL/L (20-31); CHLORIDE LEVEL 104.0 MMOL/L (98-107); CHOLESTEROL LEVEL 140.0 MG/DL (<200); CHOLESTEROL RISK RATIO 2.55 (<5); CREATININE FOR GFR 0.77 MG/DL (0.55-1.30); GLOMERULAR FILTRATION RATE 83.5 (>45); LDL CHOLESTEROL 58.5 MG/DL (<100); NON-HDL-C 85.3 MG/DL; POTASSIUM SERUM 4.3 MMOL/L (3.5-5.1); SODIUM LEVEL 143.0 MMOL/L (136-145); TRIGLYCERIDES LEVEL 134.0 MG/DL (<150)
[2025-07-16 15:36] LABS: TOTAL 25(OH) VITAMIN D 39.0 NG/ML (20.0-100.0)
[2025-07-16 15:38] LABS: FREE T4 1.44 NG/DL (0.89-1.76)
[2025-07-16 19:15] LABS: ESTIMATED AVERAGE GLUCOSE 120.0 MG/DL (60-110)
== END ==
LOC: M SFHCADAM 08:22
PROVIDERS: ATTEND Physician Assistant Medical
DX: I25.10 Atherosclerotic heart disease of native coronary artery without angina pectoris (principal); E78.2 Mixed hyperlipidemia; R73.01 Impaired fasting glucose; K21.9 Gastro-esophageal reflux disease without esophagitis